=== PATIENT | male | born 1955 | race Caucasian/White ===

== ENCOUNTER 2019-08-29 08:49 | Inpatient (IN) | payer OTHER ==
[~2019-08-29] VITALS: Ht 180.3 cm; Wt 100.6 kg
[2019-08-29] MEDS ORDERED: VANCOMYCIN 1GM+NS 250ML 250 ML IV ONE (09:19)
[2019-08-29] MEDS ORDERED: ONDANSETRON HCL 4 MG/2 ML VIAL ONE (09:36)
[2019-08-29] MEDS ORDERED: MORPHINE SULFATE 4 MG/1ML SYG ONE ×2 (09:36→18:34)
[2019-08-29] MEDS ORDERED: SODIUM BICARB 8.4% 50ML SYRINGE IVP ONE (09:46)
[2019-08-29 10:07] LABS: BASOPHILS % (AUTO) 0.6 % (0.0-5.0); EOSINOPHILS % (AUTO) 2.5 % (0.0-8.0); HEMATOCRIT 30.9 % (42-54); LYMPHOCYTES % (AUTO) 10.5 % (21.0-51.0); MEAN CORPUSCULAR HEMOGLOBIN 30.1 pg (27.0-33.0); MEAN CORPUSCULAR HGB CONC 33.5 g/dL (32.0-36.0); MEAN CORPUSCULAR VOLUME 89.8 fL (79-99); MONOCYTES % (AUTO) 6.9 % (3.0-13.0); NEUTROPHILS % (AUTO) 79.5 % (40.0-77.0); PLATELET COUNT (AUTO) 359 K/uL (130-400); RED BLOOD CELL COUNT(AUTO) 3.44 MIL/uL (4.50-6.20); RED CELL DISTRIBUTION WIDTH 14.2 % (11.0-15.5); WHITE BLOOD COUNT (AUTO) 11.1 K/uL (4.8-10.8)
[2019-08-29 10:19] LABS: CARBON DIOXIDE 23 mmol/L (21-32); CHLORIDE 102 mmol/L (101-111); CREATININE 1.2 mg/dL (0.5-1.5); GLOMERULAR FILTR. RATE CALC 65 mL/min (>60); GLUCOSE,RANDOM 143 mg/dL (70-105); POTASSIUM 4.4 mmol/L (3.5-5.1); SODIUM SERUM 138 mmol/L (136-145); UREA NITROGEN, BLOOD 29 mg/dL (7-18)
[2019-08-29 10:25] LABS: INR 1.01 (0.85-1.15); PARTIAL THROMBOPLASTIN TIME 26.4 SEC (26.3-35.5); PROTHROMBIN TIME 10.4 SEC (9.6-11.6)
[2019-08-29 10:30] LABS: ALANINE AMINOTRANSFERASE 57 U/L (12-78); ALBUMIN 3.2 g/dL (3.5-5.0); ASPARTATE AMINOTRANSFERASE 26 U/L (10-37); BILIRUBIN,TOTAL 0.4 mg/dL (0.2-1.0); CREATINE KINASE, TOTAL 68 U/L (21-232); MYOGLOBIN 55 ng/mL (10-92); TOTAL PROTEIN, SERUM 8.2 g/dL (6.0-8.3); TROPONIN I < 0.04 ng/mL (0.00-0.06)
[2019-08-29] MEDS ORDERED: IOHEXOL 350 MG/ML 100ML INFUS..BTL IV ONE (10:56)
[2019-08-29] MEDS ORDERED: IOHEXOL-350 50ML VIAL IV ONE (10:56)
[2019-08-29] MEDS ORDERED: ZOSYN 3.375GM+NS 50ML 50 ML IV ONE (11:51)
[2019-08-29 12:13] LABS: APPEARANCE,URINE Cloudy (CLEAR); BILIRUBIN,URINE Negative (NEGATIVE); COLOR,URINE Yellow (YELLOW); GLUCOSE, URINE (UA) Negative (NEGATIVE); KETONES,URINE Negative (NEGATIVE); LEUKOCYTE ESTERASE ,URINE Moderate (NEGATIVE); NITRATE,URINE Positive (NEGATIVE); OCCULT BLOOD,URINE Negative (NEGATIVE); PH,URINE 5.5 (5.0-8.0); PROTEIN,URINE Negative (NEGATIVE)
[2019-08-29 12:24] LABS: BACTERIA,URINE Moderate /HPF (None Seen); RBC,URINE 0-1 /HPF (0-1); WBC,URINE 51-100 /HPF (0-1)
[2019-08-29 12:25] LABS: MUCUS,URINE Rare LPF (None Seen); SQUAMOUS EPITHELIAL CELL,UR Rare /HPF (0-2)
[2019-08-29] MEDS ORDERED: VANCOMYCIN PROTOCOL PER PHARMACY IV SCH (15:45)
[2019-08-29] MEDS ORDERED: LACTULOSE 20 GM/30 ML UDCUP PO PRN (16:00)
[2019-08-29] MEDS ORDERED: ACETAMINOPHEN-CODEINE 300/30MG TAB ONE (16:11)
[2019-08-29] MEDS ORDERED: VANCOMYCIN 1.5 GM in SODIUM CHLORIDE 0.9% 250 ML IV SCH (16:15)
[2019-08-29] MEDS ORDERED: COMPOUND IV REFRIGERATED 1 EACH IVSOLN MISC PRN (16:15)
[2019-08-29] MEDS ORDERED: LOSA100T58 PO (19:52)
[2019-08-29] MEDS ORDERED: BUSP15TA3 PO (19:52)
[2019-08-29] MEDS ORDERED: ASPI-1026 PO (19:52)
[2019-08-29] MEDS ORDERED: PANT40TA25 PO (19:52)
[2019-08-29] MEDS ORDERED: AMLO10TA7 PO (19:52)
[2019-08-29] MEDS ORDERED: TERA2CAP4 PO (19:52)
[2019-08-29 20:05] VITALS: BP 141/90
[2019-08-29] MEDS: SODIUM CHLORIDE 0.9% 1000ML 1,000 ML IV SCH (20:22)
[2019-08-29] MEDS: MORPHINE SULFATE 4 MG/1ML SYG IV PRN (20:22)
[2019-08-29] MEDS: FAMOTIDINE 20MG TAB 20 MG TAB PO SCH (20:23)
[2019-08-29] MEDS: ZOSYN 3.375GM+NS 50ML 50 ML IV SCH (20:23)
[2019-08-29] MEDS: ONDANSETRON HCL 4 MG/2 ML VIAL IV PRN (20:23)
[2019-08-29] MEDS: ACETAMINOPHEN-CODEINE 300/30MG TAB PO PRN (22:21)
[2019-08-29 23:25] VITALS: BP_DIAS 107
[2019-08-30 03:25] VITALS: BP 111/75
[2019-08-30 03:54] LABS: BASOPHILS % (AUTO) 0.7 % (0.0-5.0); EOSINOPHILS % (AUTO) 2.8 % (0.0-8.0); HEMATOCRIT 29.8 % (42-54); LYMPHOCYTES % (AUTO) 9.6 % (21.0-51.0); MEAN CORPUSCULAR HEMOGLOBIN 30.5 pg (27.0-33.0); MEAN CORPUSCULAR HGB CONC 33.6 g/dL (32.0-36.0); MEAN CORPUSCULAR VOLUME 90.8 fL (79-99); MONOCYTES % (AUTO) 7.3 % (3.0-13.0); NEUTROPHILS % (AUTO) 79.6 % (40.0-77.0); PLATELET COUNT (AUTO) 338 K/uL (130-400); RED BLOOD CELL COUNT(AUTO) 3.29 MIL/uL (4.50-6.20); RED CELL DISTRIBUTION WIDTH 14.3 % (11.0-15.5); WHITE BLOOD COUNT (AUTO) 11.5 K/uL (4.8-10.8)
[2019-08-30 04:18] LABS: ALBUMIN 2.9 g/dL (3.5-5.0); BILIRUBIN,TOTAL 0.8 mg/dL (0.2-1.0); CREATININE 1.2 mg/dL (0.5-1.5); POTASSIUM 4.2 mmol/L (3.5-5.1); TOTAL PROTEIN, SERUM 7.4 g/dL (6.0-8.3)
[2019-08-30] MEDS: ZOSYN 3.375GM+NS 50ML 50 ML IV SCH ×3 (04:25→22:19)
[2019-08-30] MEDS: MORPHINE SULFATE 4 MG/1ML SYG IV PRN ×7 (04:26→23:33)
[2019-08-30] MEDS: SODIUM CHLORIDE 0.9% 1000ML 1,000 ML IV SCH ×3 (04:45→15:33)
[2019-08-30] MEDS: VANCOMYCIN 1GM+NS 250ML 250 ML IV SCH ×2 (06:43→20:17)
[2019-08-30] MEDS: ACETAMINOPHEN-CODEINE 300/30MG TAB PO PRN ×2 (06:51→17:13)
[2019-08-30 07:46] VITALS: BP 124/80
[2019-08-30] MEDS: FAMOTIDINE 20MG TAB 20 MG TAB PO SCH ×2 (08:10→20:17)
[2019-08-30] MEDS ORDERED: ENOXAPARIN SODIUM 30 MG/0.3 ML SQ SCH (09:00)
--- NOTE | 2019-08-30 10:30 | NUR ---
DR. TADEO IS MAKING HIS ROUNDS. AWAITING BLOOD CULTURES. CONTINUE ANTIBIOTICS. NO PLANS FOR SURGERY AT THIS TIME.
[2019-08-30 11:33] VITALS: BP 139/84
--- NOTE | 2019-08-30 12:27 | NUR ---
DR. MCKENNA IS IN TO SEE PATIENT. WILL CONTINUE WITH CURRENT ANTIBIOTICS.
[2019-08-30 16:28] VITALS: BP 146/57
--- NOTE | 2019-08-30 16:43 | NUR ---
DC PLAN PER PATIENT, IS SEMI-INDEPENDENT, LIVES ALONE, NO PROVIDER, NO EQUIPMENT, AND FEELS SAFE TO RETURN HOME ONLY IF DOCTOR RECOMMENDS. OPEN TO SNF, HOME HEALTH, OR INPATIENT REHAB IF DOCTOR RECOMMENDS. WILL POSSIBLY NEED, IV ANTIBIOTICS, WOUND CARE AND PHYSICAL THERAPY IF SURGERY IS PLANNED. MD TO DISCUSS POSSIBLE SURGERY WITH PATIENT. Addendum: 08/30/19 at 1646 by HIEN LARA RN CM Amended: Links added.
[2019-08-30] MEDS: RIFAMPIN 300 MG CAPSULE PO SCH (20:17)
[2019-08-30 20:31] VITALS: BP 107/68
[2019-08-31] VITALS (26 sets, daily range): BP systolic 97–184; BP diastolic 49–114
[2019-08-31] MEDS ORDERED: KETOROLAC TROMETHAMINE 15MG/ML ONE (00:08)
[2019-08-31] MEDS ORDERED: KETOROLAC TROMETHAMINE 15MG/ML IM SCH (00:15)
[2019-08-31 00:17] LABS: HEMATOCRIT 30.3 % (42-54)
[2019-08-31 02:02] LABS: APPEARANCE,URINE Clear (CLEAR); BILIRUBIN,URINE Negative (NEGATIVE); COLOR,URINE Dark Yellow (YELLOW); GLUCOSE, URINE (UA) Negative (NEGATIVE); KETONES,URINE Negative (NEGATIVE); LEUKOCYTE ESTERASE ,URINE Moderate (NEGATIVE); NITRATE,URINE Negative (NEGATIVE); OCCULT BLOOD,URINE Trace (NEGATIVE); PROTEIN,URINE Negative (NEGATIVE)
[2019-08-31 02:18] LABS: BACTERIA,URINE Few /HPF (None Seen); SQUAMOUS EPITHELIAL CELL,UR 0-2 /HPF (0-2)
[2019-08-31 03:01] LABS: ALBUMIN 2.6 g/dL (3.5-5.0); BILIRUBIN,TOTAL 1.2 mg/dL (0.2-1.0); CREATININE 1.3 mg/dL (0.5-1.5); POTASSIUM 3.8 mmol/L (3.5-5.1); TOTAL PROTEIN, SERUM 6.8 g/dL (6.0-8.3)
--- NOTE | 2019-08-31 03:02 | NUR ---
LEFT GROIN PRESSURE DRESSING PER CHRISTINE HORN A FEM STOP TO LT GROIN, RUG INSPECTOR HELPER DEREK UNABLE TO GET A FEM STOP, SURGIFOAM APPLIED TO LT GROIN TO STOP BLEEDING. PATIENTS VS STABLE, MINIMAL PAIN, WILL CONTINUE TO MONITOR PATIENT
[2019-08-31 03:20] LABS: BASOPHILS % (AUTO) 0.6 % (0.0-5.0); EOSINOPHILS % (AUTO) 2.1 % (0.0-8.0); HEMATOCRIT 26.9 % (42-54); LYMPHOCYTES % (AUTO) 8.5 % (21.0-51.0); MEAN CORPUSCULAR HEMOGLOBIN 29.2 pg (27.0-33.0); MEAN CORPUSCULAR HGB CONC 32.3 g/dL (32.0-36.0); MEAN CORPUSCULAR VOLUME 90.3 fL (79-99); MONOCYTES % (AUTO) 6.6 % (3.0-13.0); NEUTROPHILS % (AUTO) 82.2 % (40.0-77.0); PLATELET COUNT (AUTO) 348 K/uL (130-400); RED BLOOD CELL COUNT(AUTO) 2.98 MIL/uL (4.50-6.20); RED CELL DISTRIBUTION WIDTH 14.2 % (11.0-15.5); WHITE BLOOD COUNT (AUTO) 12.8 K/uL (4.8-10.8)
[2019-08-31] MEDS: SODIUM CHLORIDE 0.9% 1000ML 1,000 ML IV SCH ×3 (03:33→20:59)
[2019-08-31] MEDS: ZOSYN 3.375GM+NS 50ML 50 ML IV SCH ×3 (04:00→20:55)
[2019-08-31 04:30] LABS: HEMATOCRIT 26.4 % (42-54)
[2019-08-31] MEDS: MORPHINE SULFATE 4 MG/1ML SYG IV PRN ×4 (05:12→20:22)
--- NOTE | 2019-08-31 05:30 | NUR ---
UPDATE ON CALLS DR TADEO AND DR GHOTRA CALLED FOR PATIENT REPEAT BLEEDING TO LT GROIN, SHWETHA STATED TO TAKE TO OR FOR EMERGENCY SURGERY,CHARGE NURSE APPLYING PRESSURE TO LT GROIN TO CONTROL BLEEDING ALONG WITH NURSE WILFRID. VITALS SIGNS STABLE. CESAR NEWSPAPER CARRIER AT BEDSIDE AT 0645TO GIVE ANALGESICS AND ASSESSED PATIENT. ORDERED 2UNITS PRBCS, STARTED BLOOD 0637. PATIENT TAKEN TO OR, DR TADEO AWARE OF SITUATION, ALL QUESTIONS ANSWERED, STATED NO CONSENT NEEDED FOR EMERGENCY SURGERY. CURRENTLY WAITING ON OR CREW TO ARRIVE TO TAKE PATIENT. PATIENT TAKEN DOWN TO SURGERY AT 0750.
[2019-08-31 06:03] LABS: HEMATOCRIT 25.6 % (42-54)
[2019-08-31 06:09] LABS: INR 1.1 (0.85-1.15); PARTIAL THROMBOPLASTIN TIME 29.7 SEC (26.3-35.5); PROTHROMBIN TIME 11.5 SEC (9.6-11.6)
[2019-08-31] MEDS ORDERED: SODIUM CHLORIDE 0.9% 250 ML IV ONE (06:33)
[2019-08-31] MEDS ORDERED: MIDAZOLAM HCL 1 MG/ML 2ML VIAL ONE (07:27)
[2019-08-31] MEDS ORDERED: FENTANYL CITRATE PF 50 MCG/1 ML 2ML VIAL ONE (07:28)
[2019-08-31] MEDS ORDERED: SUCCINYLCHOLINE 200MG/10ML SYR ONE (07:46)
[2019-08-31] MEDS ORDERED: PROPOFOL 10 MG/ML 20ML VIAL IV ONE (07:46)
[2019-08-31] MEDS ORDERED: LIDOCAINE HCL-MPF 1% 5ML AMP IJ ONE (07:46)
[2019-08-31] MEDS ORDERED: ETOMIDATE 2 MG/ML 10 ML VIAL ONE (07:48)
[2019-08-31] MEDS ORDERED: ROCURONIUM 10MG/1ML SYR 10 MG/ML ML ONE ×3 (07:53→10:54)
--- NOTE | 2019-08-31 08:09 | NUR ---
BLEEDING LT GROIN NUPUR MCCABE ASSESSED PATIENT AT BEDSIDE,HOUSE SUPERVIOR ASSESSED PATIENT WELL, H&H WAS BEING MONITORED, US OF LT GROIN ORDERED STAT, PRESSURE TO RT GROIN WITH DESTAT WITH PRESSURE DRESSING WAS APPLIED, BLEEDING STOPPED. WILL CONTINUE TO MONITOR PATIENT
[2019-08-31 08:18] LABS: ABG BASE EXCESS -15.8 mmol/L (-2.0-3.0); ABG HCO3 14.7 mmol/L (21.0-28.0); ABG OXYGEN SATURATION 81.5 % (95.0-99.0); ABG PCO2 58 mmHg (35-48)
[2019-08-31] MEDS ORDERED: SODIUM BICARB 8.4% 50ML SYRINGE ONE (08:19)
[2019-08-31] MEDS: FAMOTIDINE 20MG TAB 20 MG TAB PO SCH ×2 (09:00→20:55)
[2019-08-31] MEDS: RIFAMPIN 300 MG CAPSULE PO SCH ×2 (09:00→20:56)
[2019-08-31 09:04] LABS: ABG BASE EXCESS 10.5 mmol/L (-2.0-3.0); ABG OXYGEN SATURATION 98.2 % (95.0-99.0); ABG PCO2 41 mmHg (35-48)
[2019-08-31] MEDS ORDERED: BACITRACIN 50,000 UNIT VIAL ONE ×2 (09:05→10:13)
[2019-08-31 09:37] LABS: ABG BASE EXCESS 0.4 mmol/L (-2.0-3.0); ABG OXYGEN SATURATION 98.3 % (95.0-99.0); ABG PCO2 40 mmHg (35-48)
[2019-08-31 09:41] LABS: HEMATOCRIT 27.6 % (42-54); LYMPHOCYTES % (AUTO) 3.8 % (21.0-51.0); MEAN CORPUSCULAR HEMOGLOBIN 31.2 pg (27.0-33.0); MEAN CORPUSCULAR HGB CONC 34.3 g/dL (32.0-36.0); MEAN CORPUSCULAR VOLUME 91.1 fL (79-99); MONOCYTES % (AUTO) 3.6 % (3.0-13.0); NEUTROPHILS % (AUTO) 89.6 % (40.0-77.0); PLATELET COUNT (AUTO) 206 K/uL (130-400); RED BLOOD CELL COUNT(AUTO) 3.03 MIL/uL (4.50-6.20); RED CELL DISTRIBUTION WIDTH 13.8 % (11.0-15.5); WHITE BLOOD COUNT (AUTO) 15.4 K/uL (4.8-10.8)
[2019-08-31 09:49] LABS: ALBUMIN 1.9 g/dL (3.5-5.0); BILIRUBIN,TOTAL 1.1 mg/dL (0.2-1.0); CREATININE 1.3 mg/dL (0.5-1.5); INR 1.25 (0.85-1.15); PARTIAL THROMBOPLASTIN TIME 25.9 SEC (26.3-35.5); POTASSIUM 4.1 mmol/L (3.5-5.1); TOTAL PROTEIN, SERUM 4.5 g/dL (6.0-8.3)
[2019-08-31] MEDS ORDERED: HEPARIN SODIUM 1000UNIT/ML 10ML VIAL ONE (09:56)
[2019-08-31] MEDS ORDERED: FENTANYL CITRATE PF 50 MCG/1 ML 5ML AMP IV ONE (10:33)
[2019-08-31] MEDS ORDERED: MIDAZOLAM HCL 1 MG/ML 5ML VIAL ONE (10:33)
[2019-08-31 10:35] LABS: ABG BASE EXCESS 6.3 mmol/L (-2.0-3.0); ABG OXYGEN SATURATION 98.7 % (95.0-99.0); ABG PCO2 40 mmHg (35-48)
[2019-08-31 10:36] LABS: BASOPHILS % (AUTO) 0.3 % (0.0-5.0); EOSINOPHILS % (AUTO) 0.3 % (0.0-8.0); HEMATOCRIT 23.9 % (42-54); LYMPHOCYTES % (AUTO) 4.3 % (21.0-51.0); MEAN CORPUSCULAR HEMOGLOBIN 30.6 pg (27.0-33.0); MEAN CORPUSCULAR HGB CONC 34.3 g/dL (32.0-36.0); MEAN CORPUSCULAR VOLUME 89.3 fL (79-99); MONOCYTES % (AUTO) 3.2 % (3.0-13.0); NEUTROPHILS % (AUTO) 91.9 % (40.0-77.0); PLATELET COUNT (AUTO) 203 K/uL (130-400); RED BLOOD CELL COUNT(AUTO) 2.68 MIL/uL (4.50-6.20); RED CELL DISTRIBUTION WIDTH 13.8 % (11.0-15.5); WHITE BLOOD COUNT (AUTO) 13.7 K/uL (4.8-10.8)
[2019-08-31] MEDS ORDERED: PROPOFOL 1000 MG/100 ML 100 ML IV ONE (11:01)
[2019-08-31 11:08] LABS: INR 1.09 (0.85-1.15); PARTIAL THROMBOPLASTIN TIME 24.3 SEC (26.3-35.5); PROTHROMBIN TIME 11.4 SEC (9.6-11.6)
[2019-08-31] MEDS ORDERED: NITROGLYCERIN 50 MG/D5% WATER 1 BOT ONE ×2 (11:13→11:37)
--- NOTE | 2019-08-31 11:17 | NUR ---
PT WAS ADMITTED TO ROOM 218 AFTER LEFT FEMORAL EXPLORATION AND REPAIR. PT WAS CONNECTED TO ARMATURE REPAIRER AND VENTILATOR PRESCRIBED. SEE PHYSICAL ASSESSMENT FOR DOCUMENTATION. PT HAS IRRIGATION TO RIGHT GROIN TO IRRIGATE LEFT GROIN SITE, SANGUINE DRAINAGE NOTED. IRRIGATION PRESCRIBED.
[2019-08-31 12:43] LABS: ABG BASE EXCESS 3.2 mmol/L (-2.0-3.0); ABG OXYGEN SATURATION 98.5 % (95.0-99.0); ABG PCO2 38 mmHg (35-48)
--- NOTE | 2019-08-31 12:45 | NUR ---
DR. FERNANDEZ HERE TO ASSESSED PT AND ORDERS NOTED. PT WILL BE LEFT INTUBATED UNTIL AM. TO REMAIN SEDATED WITH PROPOFOL.
--- NOTE | 2019-08-31 13:10 | NUR ---
SISTER JUAN HERE TO VISIT WITH PATIENT AND ADVISED NURSE THAT THE PATIENT HAS NIGHTMARES ON DIPRIVAN ALONE, THAT HE HAS BEEN ON DIPRIVAN AND VERSED FOR SEDATION ON PREVIOUS ADMISSIONS. Addendum: 08/31/19 at 1329 by VERA ALVAREZ RN RN DR. FERNANDEZ WAS ADVISED OF SISTER'S CONCERN.
[2019-08-31] MEDS ORDERED: CALCIUM GLUCONATE 1 GM/10 ML VIAL IV SCH (14:15)
[2019-08-31] MEDS: ARTIFICAL TEARS SOL 15 ML OU SCH ×2 (14:15→20:55)
[2019-08-31] MEDS ORDERED: LIDOCAINE HCL-MPF 1% 2ML VIAL IV PRN (14:30)
[2019-08-31 15:06] LABS: HEMATOCRIT 23.7 % (42-54); MEAN CORPUSCULAR HEMOGLOBIN 30.8 pg (27.0-33.0); MEAN CORPUSCULAR HGB CONC 35.3 g/dL (32.0-36.0); MEAN CORPUSCULAR VOLUME 87.3 fL (79-99); PLATELET COUNT (AUTO) 182 K/uL (130-400); RED BLOOD CELL COUNT(AUTO) 2.71 MIL/uL (4.50-6.20); RED CELL DISTRIBUTION WIDTH 14.4 % (11.0-15.5); WHITE BLOOD COUNT (AUTO) 8.7 K/uL (4.8-10.8)
[2019-08-31 15:20] LABS: INR 1.13 (0.85-1.15); PROTHROMBIN TIME 11.8 SEC (9.6-11.6)
[2019-08-31] MEDS ORDERED: CALCIUM GLUCONATE 1 GM in DEXTROSE 5%-WATER 50 ML IV SCH (15:45)
[2019-08-31 16:00] LABS: BAND NEUTROPHILS % (MANUAL) 10 % (0-2); EOSINOPHILS % (MANUAL) 1 % (1-6); LYMPHOCYTES % (MANUAL) 14 % (22-44); MAN.DIFF COMMENT-IMPRESSION MANUAL DIFFERENTIAL; MONOCYTES % (MANUAL) 5 % (2-9); REACTIVE LYMPHOCYTES 1 % (0-0); SEGMENTED NEUTROPHILS % 69 % (40-70)
[2019-08-31] MEDS ORDERED: INSULIN HUMULIN R 100 UNIT/ML 3ML SQ SCH (16:30)
[2019-08-31] MEDS: VANCOMYCIN 1GM+NS 250ML 250 ML IV SCH ×2 (17:14→18:00)
--- NOTE | 2019-08-31 18:00 | NUR ---
ORDER FOR WISAM DYSON SISTER- STATED SHE WAS AT [facility]- SPOKE TO HER- PT INTUBATED, SEDATED, Mike MORTENSEN FOR WISAM, SISTER STATES MUCH TOO EARLY TO CONSIDE, ALL HER FRIENDS AND FAMILY GO TO REHAB, WHY CANT HE GO THERE? CM PROIVED EMPOTIONAL SUPPORT- SISTER STATED BIG SHOCK TODAY- CM TO FOLLOW UP Addendum: 08/31/19 at 1924 by MARIANNE LUDWIG RN CM Amended: Links added.
[2019-08-31] MEDS: ACETAMINOPHEN-CODEINE 300/30MG TAB PO PRN ×3 (18:17→20:24)
[2019-08-31 19:26] LABS: HEMATOCRIT 24.1 % (42-54); MEAN CORPUSCULAR HEMOGLOBIN 30.2 pg (27.0-33.0); MEAN CORPUSCULAR VOLUME 86.3 fL (79-99); PLATELET COUNT (AUTO) 188 K/uL (130-400); RED BLOOD CELL COUNT(AUTO) 2.79 MIL/uL (4.50-6.20); RED CELL DISTRIBUTION WIDTH 14.3 % (11.0-15.5); WHITE BLOOD COUNT (AUTO) 8.2 K/uL (4.8-10.8)
[2019-08-31 19:36] LABS: INR 1.13 (0.85-1.15); PROTHROMBIN TIME 11.8 SEC (9.6-11.6)
[2019-08-31 20:14] LABS: BAND NEUTROPHILS % (MANUAL) 6 % (0-2); EOSINOPHILS % (MANUAL) 1 % (1-6); LYMPHOCYTES % (MANUAL) 11 % (22-44); MONOCYTES % (MANUAL) 6 % (2-9); SEGMENTED NEUTROPHILS % 76 % (40-70)
[2019-08-31 20:15] LABS: MAN.DIFF COMMENT-IMPRESSION MANUAL DIFFERENTIAL
[2019-08-31] MEDS: PROPOFOL 1000 MG/100 ML IV PRN (20:54)
--- NOTE | 2019-08-31 23:25 | NUR ---
STATUS [address] TADEO. CALL AGAIN TO NOTIFY OF DISCOLORATION OF LEFT GREAT TOE AND ABSENT PULSE TO FOOT. NO ANSWER. LEFT MESSAGE FOR RETURN CALL
[2019-09-01] VITALS (32 sets, daily range): BP systolic 105–197; BP diastolic 53–102
[2019-09-01] MEDS: PROPOFOL 1000 MG/100 ML IV PRN ×3 (01:56→05:49)
[2019-09-01] MEDS: ARTIFICAL TEARS SOL 15 ML OU SCH ×3 (03:06→14:15)
[2019-09-01 03:57] LABS: HEMATOCRIT 22.3 % (42-54); MEAN CORPUSCULAR HEMOGLOBIN 31.8 pg (27.0-33.0); MEAN CORPUSCULAR HGB CONC 36.1 g/dL (32.0-36.0); MEAN CORPUSCULAR VOLUME 88.1 fL (79-99); PLATELET COUNT (AUTO) 170 K/uL (130-400); RED BLOOD CELL COUNT(AUTO) 2.53 MIL/uL (4.50-6.20); RED CELL DISTRIBUTION WIDTH 14.6 % (11.0-15.5); WHITE BLOOD COUNT (AUTO) 8.9 K/uL (4.8-10.8)
[2019-09-01 03:59] LABS: ABG BASE EXCESS 1.9 mmol/L (-2.0-3.0); ABG HCO3 23.4 mmol/L (21.0-28.0); ABG OXYGEN SATURATION 98.2 % (95.0-99.0); ABG PCO2 29 mmHg (35-48)
[2019-09-01] MEDS: ZOSYN 3.375GM+NS 50ML 50 ML IV SCH ×3 (04:02→20:16)
[2019-09-01 04:12] LABS: EOSINOPHILS % (MANUAL) 1 % (1-6); LYMPHOCYTES % (MANUAL) 9 % (22-44); MAN.DIFF COMMENT-IMPRESSION MANUAL DIFFERENTIAL; MONOCYTES % (MANUAL) 4 % (2-9); SEGMENTED NEUTROPHILS % 86 % (40-70)
[2019-09-01 04:26] LABS: ALBUMIN 2.5 g/dL (3.5-5.0); BILIRUBIN,TOTAL 2.9 mg/dL (0.2-1.0); CREATININE 1.3 mg/dL (0.5-1.5); MAGNESIUM 1.4 mg/dL (1.80-2.40); PHOSPHORUS 4.8 mg/dL (2.5-4.9); POTASSIUM 3.6 mmol/L (3.5-5.1); TOTAL PROTEIN, SERUM 5.8 g/dL (6.0-8.3)
[2019-09-01 04:29] LABS: INR 1.14 (0.85-1.15); PROTHROMBIN TIME 11.9 SEC (9.6-11.6)
--- NOTE | 2019-09-01 05:02 | NUR ---
STATUS DR TADEO CALLED TO NOTIFY REGARDING ARTERIAL US. INCIDENTAL FINDING OF R POPLITEAL DVT AND NO FLOW OF THE LEFT SUPERFICIAL FEMORAL ARTERY FROM THE POPLITEAL DOWN. HALLUX MOTTLED. NO ANSWER. MESSAGE LEFT TO RETURN CALL
[2019-09-01] MEDS: VANCOMYCIN 1GM+NS 250ML 250 ML IV SCH ×2 (05:08→18:23)
[2019-09-01] MEDS: SODIUM CHLORIDE 0.9% 1000ML 1,000 ML IV SCH ×2 (05:11→16:45)
--- NOTE | 2019-09-01 05:26 | NUR ---
BENCHMARK BENCHMARK FURNACE COMBUSTION ANALYST NOTIFIED OF PATIENT CONDITION AND CHANGES WITH LEFT FOOT.ORDERS RECEIVED AND ENTERED INTO SYSTEM. Addendum: 09/01/19 at 0531 by ASHLI CRISTOBAL RN RN BENCHMARK 0130 PAGED BENCHMARK. PAGED AT 0150. AT 0233 CONNECTED WITH KEELY JACKSON NP.
[2019-09-01] MEDS: INSULIN HUMULIN R 100 UNIT/ML 3ML SQ SCH ×4 (06:00→18:00)
--- NOTE | 2019-09-01 06:35 | NUR ---
STATUS CALL BACK FROM DR TADEO. UPDATED ON PATIENT CONDITION. DISCOLORATION OF FOOT, PULSELESSNESS, AND RESULTS OF ARTERIAL US. INFORMED THAT PATIENT MOVES ALL [address] TADEO ORDERS TO EXTUBATE PATIENT TO DETERMINE WEATHER HAS SENSATION IN LOWER LEFT EXTREMITY.
--- NOTE | 2019-09-01 07:20 | NUR ---
REPORT REPORT GIVEN TO VERA OTERO. UPDATED ON PATIENT CONDITION. LEFT LOWER EXTREMITY AND IRRIGATION SITE ASSESSED AT THE BEDSIDE. UPDATED ON MOST RECENT ORDERS
[2019-09-01 08:25] LABS: MEAN CORPUSCULAR HEMOGLOBIN 31.1 pg (27.0-33.0); MEAN CORPUSCULAR HGB CONC 35.3 g/dL (32.0-36.0); MEAN CORPUSCULAR VOLUME 88.2 fL (79-99); PLATELET COUNT (AUTO) 175 K/uL (130-400); RED CELL DISTRIBUTION WIDTH 14.6 % (11.0-15.5); WHITE BLOOD COUNT (AUTO) 9.6 K/uL (4.8-10.8)
--- NOTE | 2019-09-01 08:30 | NUR ---
DR. FERNANDEZ WAS ADVISED OF DR. ROJAS WANTING FOR PATIENT TO BE EXTUBATED AND ASKED IF HE COULD FEEL ANY PAIN OR SENSATION TO HIS LEFT LEG. DR. FERNANDEZ ORDERED CPAP 5 WITH PS OF 5.
[2019-09-01 08:43] LABS: INR 1.13 (0.85-1.15); PROTHROMBIN TIME 11.8 SEC (9.6-11.6)
--- NOTE | 2019-09-01 09:00 | NUR ---
DR. FERNANDEZ HERE AND PT WAS PLACED ON CPAP ORDERED AND WILL OBTAIN ABG'S. PT IS BEING COMFORTED BY SISTER JUAN AND ABLE TO CONTROLLED HIS AGITATION. RESP THERAPIST BALJEET HERE AND EXPLAINING EXTUBATION TO PATIENT AND SISTER.
[2019-09-01] MEDS: MORPHINE SULFATE 4 MG/1ML SYG IV PRN ×5 (09:15→22:36)
[2019-09-01 09:22] LABS: ABG BASE EXCESS 3.8 mmol/L (-2.0-3.0); ABG OXYGEN SATURATION 98.8 % (95.0-99.0); ABG PCO2 36 mmHg (35-48)
--- NOTE | 2019-09-01 09:25 | NUR ---
PT WAS EXTUBATED AND PLACED ON AEROSOL MASK AT 40% ORDERED BY DR. FERNANDEZ AFTER ABG'S REPORTED TO DR. TAN.
[2019-09-01 10:02] LABS: EOSINOPHILS % (MANUAL) 3 % (1-6); LYMPHOCYTES % (MANUAL) 11 % (22-44); MAN.DIFF COMMENT-IMPRESSION MANUAL DIFFERENTIAL; MONOCYTES % (MANUAL) 2 % (2-9); SEGMENTED NEUTROPHILS % 84 % (40-70)
[2019-09-01 10:03] LABS: PLATELET MORPHOLOGY COMMENT ADEQUATE
[2019-09-01] MEDS: ONDANSETRON HCL 4 MG/2 ML VIAL IV PRN ×2 (10:40→20:21)
[2019-09-01] MEDS: RIFAMPIN 300 MG CAPSULE PO SCH ×2 (10:40→20:16)
[2019-09-01] MEDS: FAMOTIDINE 20MG TAB 20 MG TAB PO SCH ×2 (10:40→20:16)
[2019-09-01] MEDS: ACETAMINOPHEN-CODEINE 300/30MG TAB PO PRN ×2 (10:41→15:29)
[2019-09-01] MEDS: HEPARIN 25000 UNITS/250 ML D5W 250 ML IV PRN ×2 (12:42→22:37)
[2019-09-01] MEDS ORDERED: BACITRACIN IRRIG SCH (14:30)
[2019-09-01] MEDS ORDERED: CLOPIDOGREL BISULFATE 75 MG TAB PO SCH (14:30)
[2019-09-01] MEDS ORDERED: PHARMACY COMMUNICATION MISC SCH (14:30)
[2019-09-01] MEDS ORDERED: SODIUM CHLORIDE IRRIG IRRIG SCH (14:30)
--- NOTE | 2019-09-01 14:40 | NUR ---
PT WAS PLACED ON N/C AT 4 LITERS AND HAS BEEN OXYGENATED IN THE 97%.
--- NOTE | 2019-09-01 17:00 | NUR ---
DR. FERNANDEZ WAS CALLED AND ORDER TO CHANGE MORPHINE DOSE TO 4MG AND DC THE 2MG. PT HAD BEEN ADVISED OF MORPHINE DOSE WAS CHANGED TO ONLY 2 MG.
[2019-09-01] MEDS: BACITRACIN IRRIG SCH (18:06)
[2019-09-01] MEDS: SODIUM CHLORIDE IRRIG IRRIG SCH (18:06)
[2019-09-01 18:14] LABS: MEAN CORPUSCULAR HEMOGLOBIN 31.2 pg (27.0-33.0); MEAN CORPUSCULAR HGB CONC 35.1 g/dL (32.0-36.0); MEAN CORPUSCULAR VOLUME 88.9 fL (79-99); NUCLEATED RED BLOOD CELLS 0.1 % (0.0-0.19); PLATELET COUNT (AUTO) 169 K/uL (130-400); RED BLOOD CELL COUNT(AUTO) 2.34 MIL/uL (4.50-6.20); RED CELL DISTRIBUTION WIDTH 14.8 % (11.0-15.5); WHITE BLOOD COUNT (AUTO) 10.9 K/uL (4.8-10.8)
[2019-09-01 18:47] LABS: INR 1.16 (0.85-1.15); PROTHROMBIN TIME 12.1 SEC (9.6-11.6)
[2019-09-01 19:01] LABS: HEMATOCRIT 20.8 % (42-54)
[2019-09-01 19:58] LABS: BAND NEUTROPHILS % (MANUAL) 3 % (0-2); EOSINOPHILS % (MANUAL) 4 % (1-6); LYMPHOCYTES % (MANUAL) 10 % (22-44); MAN.DIFF COMMENT-IMPRESSION MANUAL DIFFERENTIAL; MONOCYTES % (MANUAL) 4 % (2-9); SEGMENTED NEUTROPHILS % 79 % (40-70)
[2019-09-01] MEDS: BISACODYL 5 MG TABLET.DR PO SCH (20:16)
[2019-09-01] MEDS: DOCUSATE SODIUM 100 MG CAP PO SCH (20:16)
[2019-09-01] MEDS: HYDROCODONE/ACETAMINOPHEN 5/325 MG TAB PO PRN (20:22)
[2019-09-01] MEDS: HYDRALAZINE HCL 20 MG/ML VIAL IV PRN (20:33)
--- NOTE | 2019-09-01 21:40 | NUR ---
BLOOD PRESSURE PATIENT BLOOD PRESSURE SYSTOLIC 180'S. DR TADEO NOTIFIED. NO NEW ORDERS.
[2019-09-02] VITALS (25 sets, daily range): BP systolic 113–194; BP diastolic 30–99
[2019-09-02 00:27] LABS: HEMATOCRIT 21.2 % (42-54); MEAN CORPUSCULAR HEMOGLOBIN 30.1 pg (27.0-33.0); MEAN CORPUSCULAR HGB CONC 33.9 g/dL (32.0-36.0); MEAN CORPUSCULAR VOLUME 88.8 fL (79-99); PLATELET COUNT (AUTO) 178 K/uL (130-400); RED BLOOD CELL COUNT(AUTO) 2.39 MIL/uL (4.50-6.20); RED CELL DISTRIBUTION WIDTH 14.6 % (11.0-15.5); WHITE BLOOD COUNT (AUTO) 11.2 K/uL (4.8-10.8)
[2019-09-02 00:47] LABS: INR 1.1 (0.85-1.15); PARTIAL THROMBOPLASTIN TIME 65.4 SEC (26.3-35.5); PROTHROMBIN TIME 11.5 SEC (9.6-11.6)
[2019-09-02 00:48] LABS: EOSINOPHILS % (MANUAL) 4 % (1-6); LYMPHOCYTES % (MANUAL) 7 % (22-44); MAN.DIFF COMMENT-IMPRESSION MANUAL DIFFERENTIAL; MONOCYTES % (MANUAL) 2 % (2-9); SEGMENTED NEUTROPHILS % 87 % (40-70)
[2019-09-02 00:49] LABS: PLATELET MORPHOLOGY COMMENT ADEQUATE
[2019-09-02] MEDS: MORPHINE SULFATE 4 MG/1ML SYG IV PRN ×5 (02:22→18:30)
[2019-09-02] MEDS: SODIUM CHLORIDE 0.9% 1000ML 1,000 ML IV SCH ×3 (02:28→22:45)
[2019-09-02] MEDS: ZOSYN 3.375GM+NS 50ML 50 ML IV SCH ×3 (03:31→21:11)
[2019-09-02] MEDS: HYDROCODONE/ACETAMINOPHEN 5/325 MG TAB PO PRN ×2 (03:52→07:54)
[2019-09-02] MEDS: INSULIN HUMULIN R 100 UNIT/ML 3ML SQ SCH ×4 (05:53→18:00)
[2019-09-02] MEDS: HYDRALAZINE HCL 20 MG/ML VIAL IV PRN (05:59)
[2019-09-02 06:09] LABS: ALBUMIN 2.4 g/dL (3.5-5.0); BILIRUBIN,TOTAL 1.4 mg/dL (0.2-1.0); MAGNESIUM 2.2 mg/dL (1.80-2.40); PHOSPHORUS 2.3 mg/dL (2.5-4.9); POTASSIUM 3.2 mmol/L (3.5-5.1); TOTAL PROTEIN, SERUM 6.1 g/dL (6.0-8.3)
[2019-09-02] MEDS: VANCOMYCIN 1GM+NS 250ML 250 ML IV SCH ×3 (06:48→21:11)
--- NOTE | 2019-09-02 06:50 | NUR ---
STATUS MD ROUNDS. DR VIVEROS AT THE BEDSIDE. UPDATED ON PATIENT CONDITION. LOWER EXTREMITIES VIEWED. REQUESTED ADDITIONAL PAIN MEDICATION. NO NEW ORDERS RECEIVED. PATIENT QUESTIONS ANSWERED
[2019-09-02] MEDS: BISACODYL 5 MG TABLET.DR PO SCH ×2 (07:54→21:12)
[2019-09-02] MEDS: FAMOTIDINE 20MG TAB 20 MG TAB PO SCH ×2 (07:54→21:12)
[2019-09-02] MEDS: RIFAMPIN 300 MG CAPSULE PO SCH ×2 (07:54→21:11)
[2019-09-02] MEDS: DOCUSATE SODIUM 100 MG CAP PO SCH ×2 (07:54→21:12)
[2019-09-02] MEDS: CLOPIDOGREL BISULFATE 75 MG TAB PO SCH (07:54)
[2019-09-02] MEDS: POTASSIUM CHLORIDE 20MEQ/100ML 100 ML IV PRN ×3 (08:10→18:39)
[2019-09-02] MEDS ORDERED: FENTANYL 50 MCG/HR PATCH TD SCH (10:30)
[2019-09-02] MEDS ORDERED: EPOETIN ALFA 10,000 UNIT/ML VIAL SQ SCH (10:30)
[2019-09-02] MEDS ORDERED: HYDROMORPHONE 1 MG/1 ML AMP IVP SCH (10:30)
[2019-09-02] MEDS: FUROSEMIDE 10 MG/ML 2ML VIAL IV SCH ×2 (10:58→21:11)
[2019-09-02] MEDS: METOPROLOL TARTRATE 25 MG TAB PO SCH ×2 (10:58→21:12)
[2019-09-02] MEDS: TRAMADOL HCL 50 MG TABLET PO SCH ×3 (10:59→21:15)
[2019-09-02] MEDS: HEPARIN 25000 UNITS/250 ML D5W 250 ML IV PRN (11:19)
[2019-09-02] MEDS ORDERED: COMPOUND IV MISC 1 EACH IVSOLN MISC PRN (12:15)
[2019-09-02 12:17] LABS: HEMATOCRIT 23.8 % (42-54); MEAN CORPUSCULAR HEMOGLOBIN 29.7 pg (27.0-33.0); MEAN CORPUSCULAR HGB CONC 33.3 g/dL (32.0-36.0); MEAN CORPUSCULAR VOLUME 89.2 fL (79-99); PLATELET COUNT (AUTO) 225 K/uL (130-400); RED BLOOD CELL COUNT(AUTO) 2.66 MIL/uL (4.50-6.20); RED CELL DISTRIBUTION WIDTH 14.8 % (11.0-15.5); WHITE BLOOD COUNT (AUTO) 12.3 K/uL (4.8-10.8)
[2019-09-02 12:35] LABS: PARTIAL THROMBOPLASTIN TIME 70.2 SEC (26.3-35.5)
[2019-09-02 13:37] LABS: EOSINOPHILS % (MANUAL) 6 % (1-6); LYMPHOCYTES % (MANUAL) 7 % (22-44); MAN.DIFF COMMENT-IMPRESSION MANUAL DIFFERENTIAL; MONOCYTES % (MANUAL) 2 % (2-9); PLATELET MORPHOLOGY COMMENT ADEQUATE; SEGMENTED NEUTROPHILS % 85 % (40-70)
[2019-09-02] MEDS: NEUTRA-PHOS PACKET 1 EACH PO SCH ×3 (13:37→21:12)
[2019-09-02] MEDS: BACITRACIN IRRIG SCH (14:29)
[2019-09-02] MEDS: SODIUM CHLORIDE IRRIG IRRIG SCH (14:29)
[2019-09-02] MEDS ORDERED: PHARMACY COMMUNICATION MISC SCH ×3 (14:30→17:45)
--- NOTE | 2019-09-02 15:50 | NUR ---
[facility] CONSULT NO OPEN WOUNDS OR REDNESS NOTED AT PRESENT TIME, PER FLOOR NURSE ANIKA. Addendum: 09/04/19 at 1329 by MOE AN LVN Amended: Links added.
[2019-09-02 18:16] LABS: HEMATOCRIT 23.6 % (42-54); MEAN CORPUSCULAR HEMOGLOBIN 30.2 pg (27.0-33.0); MEAN CORPUSCULAR HGB CONC 33.5 g/dL (32.0-36.0); MEAN CORPUSCULAR VOLUME 90.1 fL (79-99); NUCLEATED RED BLOOD CELLS 0.1 % (0.0-0.19); PLATELET COUNT (AUTO) 252 K/uL (130-400); RED BLOOD CELL COUNT(AUTO) 2.62 MIL/uL (4.50-6.20); RED CELL DISTRIBUTION WIDTH 14.6 % (11.0-15.5); WHITE BLOOD COUNT (AUTO) 9.3 K/uL (4.8-10.8)
[2019-09-02 18:25] LABS: MAGNESIUM 1.7 mg/dL (1.80-2.40); POTASSIUM 3.6 mmol/L (3.5-5.1)
[2019-09-02] MEDS ORDERED: MAGNESIUM 2GM PREMIX 50ML 50 ML IV PRN (18:45)
[2019-09-02 19:23] LABS: EOSINOPHILS % (MANUAL) 4 % (1-6); LYMPHOCYTES % (MANUAL) 15 % (22-44); MONOCYTES % (MANUAL) 7 % (2-9); SEGMENTED NEUTROPHILS % 74 % (40-70)
[2019-09-02 19:26] LABS: MAN.DIFF COMMENT-IMPRESSION MANUAL DIFFERENTIAL
[2019-09-02 19:27] LABS: PLATELET MORPHOLOGY COMMENT ADEQUATE
[2019-09-02] MEDS: MELATONIN 8 MG PO SCH (21:00)
[2019-09-02] MEDS: TRAZODONE HCL 100 MG TABLET PO SCH (21:15)
[2019-09-03] VITALS (30 sets, daily range): BP systolic 98–174; BP diastolic 48–99
[2019-09-03] MEDS: HEPARIN 25000 UNITS/250 ML D5W 250 ML IV PRN (00:02)
[2019-09-03] MEDS: TRAMADOL HCL 50 MG TABLET PO SCH ×4 (04:39→20:37)
[2019-09-03] MEDS: ZOSYN 3.375GM+NS 50ML 50 ML IV SCH ×3 (04:39→20:38)
[2019-09-03] MEDS: INSULIN HUMULIN R 100 UNIT/ML 3ML SQ SCH ×2 (06:00)
[2019-09-03] MEDS: VANCOMYCIN 1GM+NS 250ML 250 ML IV SCH ×3 (06:10→22:42)
[2019-09-03 06:31] LABS: HEMATOCRIT 21.7 % (42-54); MEAN CORPUSCULAR HEMOGLOBIN 30.9 pg (27.0-33.0); MEAN CORPUSCULAR HGB CONC 34.3 g/dL (32.0-36.0); MEAN CORPUSCULAR VOLUME 90.1 fL (79-99); PLATELET COUNT (AUTO) 228 K/uL (130-400); RED BLOOD CELL COUNT(AUTO) 2.41 MIL/uL (4.50-6.20); RED CELL DISTRIBUTION WIDTH 14.4 % (11.0-15.5); WHITE BLOOD COUNT (AUTO) 11.1 K/uL (4.8-10.8)
[2019-09-03 06:44] LABS: MAGNESIUM 1.7 mg/dL (1.80-2.40); PHOSPHORUS 1.8 mg/dL (2.5-4.9)
[2019-09-03 06:53] LABS: PARTIAL THROMBOPLASTIN TIME 60.1 SEC (26.3-35.5)
[2019-09-03 07:18] LABS: BAND NEUTROPHILS % (MANUAL) 1 % (0-2); BASOPHILS % (MANUAL) 2 % (0-2); EOSINOPHILS % (MANUAL) 4 % (1-6); LYMPHOCYTES % (MANUAL) 4 % (22-44); MONOCYTES % (MANUAL) 2 % (2-9); SEGMENTED NEUTROPHILS % 87 % (40-70)
[2019-09-03 07:19] LABS: MAN.DIFF COMMENT-IMPRESSION MANUAL DIFFERENTIAL; PLATELET MORPHOLOGY COMMENT ADEQUATE
[2019-09-03] MEDS: FAMOTIDINE 20MG TAB 20 MG TAB PO SCH ×2 (07:54→20:37)
[2019-09-03] MEDS: RIFAMPIN 300 MG CAPSULE PO SCH ×2 (07:54→20:37)
[2019-09-03] MEDS: DOXAZOSIN MESYLATE 2 MG TABLET PO SCH (07:55)
[2019-09-03] MEDS: BUPROPION HCL 150 MG TABLET.SA PO SCH (07:55)
[2019-09-03] MEDS: METOPROLOL TARTRATE 25 MG TAB PO SCH ×2 (07:55→20:37)
[2019-09-03] MEDS: ACETAMINOPHEN 325 MG TAB PO PRN (07:55)
[2019-09-03] MEDS: DOCUSATE SODIUM 100 MG CAP PO SCH ×2 (07:56→20:37)
[2019-09-03] MEDS: BISACODYL 5 MG TABLET.DR PO SCH ×2 (07:56→20:37)
[2019-09-03] MEDS: CLOPIDOGREL BISULFATE 75 MG TAB PO SCH (07:56)
[2019-09-03] MEDS: SODIUM CHLORIDE 0.9% 1000ML 1,000 ML IV SCH ×2 (08:09→18:02)
[2019-09-03] MEDS: NEUTRA-PHOS PACKET 1 EACH PO SCH (08:09)
--- NOTE | 2019-09-03 08:30 | NUR ---
MD VISIT Dr. Drew in to see pt, update given. New orders received dn will carry out.
[2019-09-03] MEDS: HYDROCODONE/ACETAMINOPHEN 5/325 MG TAB PO PRN ×2 (08:58→18:02)
[2019-09-03] MEDS ORDERED: WELLBUTRIN 100 MG PO SCH (09:00)
[2019-09-03] MEDS ORDERED: IRON SUCROSE COMPLEX 100 MG in SODIUM CHLORIDE 0.9% 50 ML IV SCH (09:00)
[2019-09-03] MEDS ORDERED: MELATONIN 8 MG PO SCH (09:00)
[2019-09-03] MEDS: MORPHINE SULFATE 4 MG/1ML SYG IV PRN ×3 (09:01→22:42)
[2019-09-03] MEDS: ENOXAPARIN SODIUM 120 MG/0.8ML SQ SCH ×2 (09:01→20:37)
[2019-09-03] MEDS: POTASSIUM PHOS 15 mMOL+NS250ML 250 ML IV PRN (10:34)
[2019-09-03] MEDS: BACITRACIN IRRIG SCH (12:05)
[2019-09-03] MEDS: SODIUM CHLORIDE IRRIG IRRIG SCH (12:05)
[2019-09-03] MEDS ORDERED: MAGNESIUM 2GM PREMIX 50ML 50 ML IV PRN (13:00)
--- NOTE | 2019-09-03 13:27 | NUR ---
DC PLAN VISITED WITH PATIENT. PATIENT STILL ON A ONE TO ONE. PER NURSE SURGEON IS THINKING THAT PATIENT NEEDS TO GO BACK FOR PROCEDURE BUT NO CONCRETE PLANS YET. AT THIS TIME NOT READY FOR TRANSFER TO [facility]. STILL PENDING DR. ANDRADE RECOMMENDATIONS. NO FAMILY AT BEDSIDE. PER WEEKEND LAY OUT MACHINE OPERATORWEB PRESS JOGGER DID NOT FEEL COMFORTABLE SIGNING JENNIFER FOR SOLERA. Addendum: 09/03/19 at 1329 by RICKI STINSON RN CM Amended: Links added.
--- NOTE | 2019-09-03 14:34 | NUR ---
RDSCREEN - LOS X 5 DAYS Pt admitted for Infected femoral bypass graft, UTI. Pt Hx of HTN, DM. Pt tolerating current diet order of Heart healthy diet, with no report of GI distress and Pt reports eating 100% intake. Recommend to add 75gm CCD. Also recommend multivitamin for nutritional support. Pt LBM 08/29/19. Pt monitored labs: BG 122, P 1.8, Mg 1.70, Alb 2.4, Ca 8.3, T. Bili 1.4, AT 104. RD to continue to monitor. Please notify RD as additional nutrition concerns arise. Thank you. Addendum: 09/03/19 at [address] Amended: Links added.
[2019-09-03] MEDS: TRAZODONE HCL 100 MG TABLET PO SCH (20:37)
[2019-09-03] MEDS: MELATONIN 8 MG PO SCH (20:38)
[2019-09-04 00:02] VITALS: BP 140/84
[2019-09-04] MEDS: MORPHINE SULFATE 4 MG/1ML SYG IV PRN ×2 (02:17→09:08)
[2019-09-04] MEDS: TRAMADOL HCL 50 MG TABLET PO SCH ×4 (04:22→20:50)
[2019-09-04] MEDS: VANCOMYCIN 1GM+NS 250ML 250 ML IV SCH ×3 (04:23→20:50)
[2019-09-04] MEDS: SODIUM CHLORIDE 0.9% 1000ML 1,000 ML IV SCH ×2 (04:23→21:11)
[2019-09-04] MEDS: ZOSYN 3.375GM+NS 50ML 50 ML IV SCH ×3 (04:23→20:43)
[2019-09-04 05:22] LABS: MEAN CORPUSCULAR HEMOGLOBIN 30.6 pg (27.0-33.0); MEAN CORPUSCULAR HGB CONC 33.9 g/dL (32.0-36.0); MEAN CORPUSCULAR VOLUME 90.1 fL (79-99); NUCLEATED RED BLOOD CELLS 0.1 % (0.0-0.19); PLATELET COUNT (AUTO) 223 K/uL (130-400); RED BLOOD CELL COUNT(AUTO) 2.29 MIL/uL (4.50-6.20); RED CELL DISTRIBUTION WIDTH 14.5 % (11.0-15.5); WHITE BLOOD COUNT (AUTO) 8.2 K/uL (4.8-10.8)
[2019-09-04 05:36] LABS: INR 1.01 (0.85-1.15); PARTIAL THROMBOPLASTIN TIME 38.1 SEC (26.3-35.5); PROTHROMBIN TIME 10.6 SEC (9.6-11.6)
[2019-09-04 05:44] LABS: HEMATOCRIT 20.6 % (42-54)
[2019-09-04 05:45] LABS: ALBUMIN 2.2 g/dL (3.5-5.0); CREATININE 0.9 mg/dL (0.5-1.5); MAGNESIUM 2.4 mg/dL (1.80-2.40); PHOSPHORUS 1.6 mg/dL (2.5-4.9); POTASSIUM 3.4 mmol/L (3.5-5.1); TOTAL PROTEIN, SERUM 6.1 g/dL (6.0-8.3)
[2019-09-04] MEDS: POTASSIUM CHLORIDE 20MEQ/100ML 100 ML IV PRN (06:02)
[2019-09-04] MEDS ORDERED: PHARMACY COMMUNICATION MISC SCH (06:15)
[2019-09-04] MEDS: POTASSIUM PHOS 15 mMOL+NS250ML 250 ML IV PRN (06:26)
[2019-09-04 07:00] VITALS: BP 152/95
[2019-09-04] MEDS: RIFAMPIN 300 MG CAPSULE PO SCH ×2 (08:48→20:49)
[2019-09-04] MEDS: DOCUSATE SODIUM 100 MG CAP PO SCH ×2 (08:48→20:42)
[2019-09-04] MEDS: FAMOTIDINE 20MG TAB 20 MG TAB PO SCH ×2 (08:49→20:42)
[2019-09-04] MEDS: DOXAZOSIN MESYLATE 2 MG TABLET PO SCH (08:49)
[2019-09-04] MEDS: METOPROLOL TARTRATE 25 MG TAB PO SCH ×2 (08:49→20:42)
[2019-09-04] MEDS: CLOPIDOGREL BISULFATE 75 MG TAB PO SCH (08:49)
[2019-09-04] MEDS: BUPROPION HCL 150 MG TABLET.SA PO SCH (08:49)
[2019-09-04] MEDS: BISACODYL 5 MG TABLET.DR PO SCH ×2 (08:49→20:42)
[2019-09-04] MEDS: ENOXAPARIN SODIUM 120 MG/0.8ML SQ SCH ×2 (08:50→20:43)
[2019-09-04] MEDS ORDERED: HYDROXYZINE HCL 25 MG TABLET PO PRN (09:00)
[2019-09-04 11:01] VITALS: BP 158/83
[2019-09-04] MEDS: FENTANYL 75 MCG/HR PATCH TD SCH (12:45)
--- NOTE | 2019-09-04 13:05 | NUR ---
DC PLAN SPOKE TO NURSING STAFF PATIENT AAOX3. NO LONGER ON A ONE TO ONE. YESTERDAY PATIENT WAS STILL ON ONE TO ONE AND NURSE SAID THAT PATIENT CONFUSED. SAID THAT PATIENT PENDING POSSIBLE SECOND PROCEDURE. PER NURSE TODAY SAID THAT THERE MIGHT BE ANOTHER PROCEDURE BUT THAT DR. TADEO HAD SAID THAT IT WOULD NOT BE DONE UNTIL PATIENT HAD BEEN CLEANED OF INFECTION. JENNIFER SIGNED BY PATIENT. [facility] AND [facility]. Addendum: 09/04/19 at 1308 by RICKI STINSON RN CM Amended: Links added.
[2019-09-04 14:21] LABS: HEMATOCRIT 20.4 % (42-54)
[2019-09-04 15:57] VITALS: BP 156/91
[2019-09-04] MEDS ORDERED: SODIUM CHLORIDE 0.9% 250 ML IV ONE (17:56)
--- NOTE | 2019-09-04 18:01 | NUR ---
UNIT OF RBC'S STARTED ORDERED AND WILL ORDER H & H FOR 2 HOURS AFTER INFUSION.
[2019-09-04 19:37] VITALS: BP 144/96
[2019-09-04] MEDS: TRAZODONE HCL 100 MG TABLET PO SCH (20:42)
[2019-09-04] MEDS: MELATONIN 8 MG PO SCH (20:53)
[2019-09-04 23:47] VITALS: BP 155/93
[2019-09-05 00:21] LABS: BASOPHILS % (AUTO) 0.5 % (0.0-5.0); EOSINOPHILS % (AUTO) 3.6 % (0.0-8.0); HEMATOCRIT 22.9 % (42-54); LYMPHOCYTES % (AUTO) 10.1 % (21.0-51.0); MEAN CORPUSCULAR HEMOGLOBIN 30.4 pg (27.0-33.0); MEAN CORPUSCULAR VOLUME 89.4 fL (79-99); MONOCYTES % (AUTO) 8.8 % (3.0-13.0); NUCLEATED RED BLOOD CELLS 0.1 % (0.0-0.19); PLATELET COUNT (AUTO) 233 K/uL (130-400); RED BLOOD CELL COUNT(AUTO) 2.56 MIL/uL (4.50-6.20); WHITE BLOOD COUNT (AUTO) 8.6 K/uL (4.8-10.8)
[2019-09-05] MEDS: SODIUM CHLORIDE 0.9% 1000ML 1,000 ML IV SCH ×3 (00:45→18:40)
[2019-09-05 04:03] VITALS: BP 159/97
[2019-09-05 05:07] LABS: BASOPHILS % (AUTO) 0.6 % (0.0-5.0); EOSINOPHILS % (AUTO) 3.8 % (0.0-8.0); HEMATOCRIT 23.4 % (42-54); MEAN CORPUSCULAR HEMOGLOBIN 31.5 pg (27.0-33.0); MEAN CORPUSCULAR HGB CONC 35.1 g/dL (32.0-36.0); MEAN CORPUSCULAR VOLUME 89.7 fL (79-99); MONOCYTES % (AUTO) 8.5 % (3.0-13.0); NEUTROPHILS % (AUTO) 77.1 % (40.0-77.0); PLATELET COUNT (AUTO) 241 K/uL (130-400); RED BLOOD CELL COUNT(AUTO) 2.61 MIL/uL (4.50-6.20); RED CELL DISTRIBUTION WIDTH 13.9 % (11.0-15.5); WHITE BLOOD COUNT (AUTO) 8.9 K/uL (4.8-10.8)
[2019-09-05 05:19] LABS: INR 0.99 (0.85-1.15); PARTIAL THROMBOPLASTIN TIME 31.4 SEC (26.3-35.5); PROTHROMBIN TIME 10.4 SEC (9.6-11.6)
[2019-09-05 05:22] LABS: ALBUMIN 2.2 g/dL (3.5-5.0); BILIRUBIN,TOTAL 0.9 mg/dL (0.2-1.0); CREATININE 0.8 mg/dL (0.5-1.5); POTASSIUM 3.4 mmol/L (3.5-5.1); TOTAL PROTEIN, SERUM 6.6 g/dL (6.0-8.3)
[2019-09-05] MEDS: ZOSYN 3.375GM+NS 50ML 50 ML IV SCH ×3 (05:50→21:06)
[2019-09-05] MEDS: TRAMADOL HCL 50 MG TABLET PO SCH ×4 (05:51→22:30)
[2019-09-05] MEDS: VANCOMYCIN 1GM+NS 250ML 250 ML IV SCH ×2 (05:51→14:15)
[2019-09-05 08:00] VITALS: BP 158/92
[2019-09-05] MEDS: DOCUSATE SODIUM 100 MG CAP PO SCH ×2 (09:32→21:07)
[2019-09-05] MEDS: CLOPIDOGREL BISULFATE 75 MG TAB PO SCH (09:32)
[2019-09-05] MEDS: DOXAZOSIN MESYLATE 2 MG TABLET PO SCH (09:32)
[2019-09-05] MEDS: BUPROPION HCL 150 MG TABLET.SA PO SCH (09:32)
[2019-09-05] MEDS: FAMOTIDINE 20MG TAB 20 MG TAB PO SCH ×2 (09:32→21:07)
[2019-09-05] MEDS: BISACODYL 5 MG TABLET.DR PO SCH ×2 (09:33→21:07)
[2019-09-05] MEDS: RIFAMPIN 300 MG CAPSULE PO SCH ×2 (09:33→21:07)
[2019-09-05] MEDS: ENOXAPARIN SODIUM 120 MG/0.8ML SQ SCH ×2 (09:33→21:07)
[2019-09-05] MEDS: METOPROLOL TARTRATE 25 MG TAB PO SCH ×2 (09:33→21:07)
[2019-09-05 11:43] VITALS: BP 161/94
[2019-09-05 15:29] VITALS: BP 154/91
[2019-09-05] MEDS: SODIUM CHLORIDE IRRIG IRRIG SCH (18:40)
[2019-09-05] MEDS: BACITRACIN IRRIG SCH (18:40)
[2019-09-05 19:00] VITALS: BP 165/82
[2019-09-05] MEDS: VANCOMYCIN 1.75 GM in SODIUM CHLORIDE 0.9% 250 ML IV SCH (21:06)
[2019-09-05] MEDS: TRAZODONE HCL 100 MG TABLET PO SCH (21:07)
[2019-09-05] MEDS: MELATONIN 8 MG PO SCH (21:08)
[2019-09-05 23:00] VITALS: BP 155/95
[2019-09-06] MEDS: TRAMADOL HCL 50 MG TABLET PO SCH ×5 (00:26→22:30)
[2019-09-06 03:00] VITALS: BP 143/87
[2019-09-06] MEDS: HYDRALAZINE HCL 20 MG/ML VIAL IV PRN ×2 (03:39→23:47)
[2019-09-06] MEDS: ZOSYN 3.375GM+NS 50ML 50 ML IV SCH ×3 (04:11→21:28)
[2019-09-06 05:47] LABS: BASOPHILS % (AUTO) 0.5 % (0.0-5.0); EOSINOPHILS % (AUTO) 3.4 % (0.0-8.0); HEMATOCRIT 25.3 % (42-54); LYMPHOCYTES % (AUTO) 10.6 % (21.0-51.0); MEAN CORPUSCULAR HEMOGLOBIN 30.5 pg (27.0-33.0); MEAN CORPUSCULAR VOLUME 89.6 fL (79-99); MONOCYTES % (AUTO) 8.4 % (3.0-13.0); NEUTROPHILS % (AUTO) 77.1 % (40.0-77.0); NUCLEATED RED BLOOD CELLS 0.3 % (0.0-0.19); PLATELET COUNT (AUTO) 293 K/uL (130-400); RED BLOOD CELL COUNT(AUTO) 2.82 MIL/uL (4.50-6.20); RED CELL DISTRIBUTION WIDTH 14.4 % (11.0-15.5); WHITE BLOOD COUNT (AUTO) 8.9 K/uL (4.8-10.8)
[2019-09-06 06:06] LABS: ALBUMIN 2.4 g/dL (3.5-5.0); BILIRUBIN,TOTAL 0.7 mg/dL (0.2-1.0); POTASSIUM 3.1 mmol/L (3.5-5.1)
[2019-09-06 06:08] LABS: INR 1.01 (0.85-1.15); PARTIAL THROMBOPLASTIN TIME 33.3 SEC (26.3-35.5); PROTHROMBIN TIME 10.6 SEC (9.6-11.6)
[2019-09-06 06:15] LABS: CREATININE 0.9 mg/dL (0.5-1.5)
[2019-09-06] MEDS ORDERED: POTASSIUM CHLORIDE 20 MEQ ERTAB PO ONE (06:43)
[2019-09-06] MEDS: SODIUM CHLORIDE 0.9% 1000ML 1,000 ML IV SCH ×2 (06:45→16:08)
[2019-09-06] MEDS ORDERED: POTASSIUM CHLORIDE 20 MEQ ERTAB PO PRN (06:45)
[2019-09-06 07:45] VITALS: BP 156/84
[2019-09-06 11:31] VITALS: BP 161/92
[2019-09-06] MEDS: METOPROLOL TARTRATE 25 MG TAB PO SCH ×2 (12:07→21:28)
[2019-09-06] MEDS: FAMOTIDINE 20MG TAB 20 MG TAB PO SCH ×2 (12:07→21:28)
[2019-09-06] MEDS: DOCUSATE SODIUM 100 MG CAP PO SCH ×2 (12:07→21:00)
[2019-09-06] MEDS: DOXAZOSIN MESYLATE 2 MG TABLET PO SCH (12:08)
[2019-09-06] MEDS: CLOPIDOGREL BISULFATE 75 MG TAB PO SCH (12:08)
[2019-09-06] MEDS: BUPROPION HCL 150 MG TABLET.SA PO SCH (12:08)
[2019-09-06] MEDS: BISACODYL 5 MG TABLET.DR PO SCH ×2 (12:08→21:00)
[2019-09-06] MEDS: RIFAMPIN 300 MG CAPSULE PO SCH ×2 (12:09→21:28)
[2019-09-06] MEDS: POTASSIUM CHLORIDE 20 MEQ ERTAB PO SCH ×3 (12:09→21:27)
[2019-09-06] MEDS: ENOXAPARIN SODIUM 120 MG/0.8ML SQ SCH (12:10)
[2019-09-06] MEDS: VANCOMYCIN 1.75 GM in SODIUM CHLORIDE 0.9% 250 ML IV SCH ×2 (12:11→23:47)
[2019-09-06] MEDS: ACETAMINOPHEN 325 MG TAB PO PRN (13:15)
[2019-09-06] MEDS: SODIUM CHLORIDE IRRIG IRRIG SCH (16:04)
[2019-09-06] MEDS: BACITRACIN IRRIG SCH (16:04)
[2019-09-06 16:52] VITALS: BP 150/88
[2019-09-06 19:00] VITALS: BP 152/90
[2019-09-06] MEDS: APIXABAN 5 MG TABLET PO SCH (21:27)
[2019-09-06] MEDS: TRAZODONE HCL 100 MG TABLET PO SCH (21:27)
[2019-09-06] MEDS: MELATONIN 8 MG PO SCH (21:32)
[2019-09-06 23:00] VITALS: BP 172/100
[2019-09-07] MEDS: SODIUM CHLORIDE 0.9% 1000ML 1,000 ML IV SCH ×3 (02:45→23:59)
[2019-09-07 03:00] VITALS: BP 145/88
[2019-09-07 03:48] LABS: BASOPHILS % (AUTO) 0.9 % (0.0-5.0); EOSINOPHILS % (AUTO) 3.6 % (0.0-8.0); HEMATOCRIT 25.5 % (42-54); LYMPHOCYTES % (AUTO) 11.4 % (21.0-51.0); MEAN CORPUSCULAR HEMOGLOBIN 31.4 pg (27.0-33.0); MEAN CORPUSCULAR HGB CONC 34.8 g/dL (32.0-36.0); MEAN CORPUSCULAR VOLUME 90.2 fL (79-99); MONOCYTES % (AUTO) 8.3 % (3.0-13.0); NEUTROPHILS % (AUTO) 75.8 % (40.0-77.0); NUCLEATED RED BLOOD CELLS 0.2 % (0.0-0.19); PLATELET COUNT (AUTO) 304 K/uL (130-400); RED BLOOD CELL COUNT(AUTO) 2.83 MIL/uL (4.50-6.20); RED CELL DISTRIBUTION WIDTH 14.7 % (11.0-15.5); WHITE BLOOD COUNT (AUTO) 8.3 K/uL (4.8-10.8)
[2019-09-07 03:55] LABS: CREATININE 0.9 mg/dL (0.5-1.5); POTASSIUM 3.2 mmol/L (3.5-5.1)
[2019-09-07] MEDS: TRAMADOL HCL 50 MG TABLET PO SCH ×5 (04:30→23:39)
[2019-09-07] MEDS: ZOSYN 3.375GM+NS 50ML 50 ML IV SCH ×5 (04:55→22:23)
[2019-09-07] MEDS: POTASSIUM CHLORIDE 20MEQ/100ML 100 ML IV PRN (06:57)
[2019-09-07 07:00] VITALS: BP 169/91
--- NOTE | 2019-09-07 07:50 | NUR ---
DR. VIVEROS IN ROOM SPEAKING WITH PT. RE:PLAN OF CARE. DR. VIVEROS PROCEEDED TO REMOVE BILATERAL FEMORAL DRAIN TUBES. LIGHT DRSG APPLIED PER DR. VIVEROS ORDER.
[2019-09-07] MEDS: CLOPIDOGREL BISULFATE 75 MG TAB PO SCH (08:23)
[2019-09-07] MEDS: METOPROLOL TARTRATE 25 MG TAB PO SCH ×2 (08:23→21:47)
[2019-09-07] MEDS: BUPROPION HCL 150 MG TABLET.SA PO SCH (08:23)
[2019-09-07] MEDS: FAMOTIDINE 20MG TAB 20 MG TAB PO SCH ×2 (08:23→21:46)
[2019-09-07] MEDS: APIXABAN 5 MG TABLET PO SCH ×2 (08:24→21:46)
[2019-09-07] MEDS: DOCUSATE SODIUM 100 MG CAP PO SCH ×2 (08:24→21:47)
[2019-09-07] MEDS: DOXAZOSIN MESYLATE 2 MG TABLET PO SCH (08:24)
[2019-09-07] MEDS: RIFAMPIN 300 MG CAPSULE PO SCH ×2 (08:24→21:47)
[2019-09-07] MEDS: BISACODYL 5 MG TABLET.DR PO SCH ×2 (08:24→21:46)
[2019-09-07] MEDS: FENTANYL 75 MCG/HR PATCH TD SCH ×2 (09:00→11:13)
[2019-09-07] MEDS ORDERED: LOSARTAN 100 MG TABLET PO SCH (09:00)
[2019-09-07] MEDS: VANCOMYCIN 1.75 GM in SODIUM CHLORIDE 0.9% 250 ML IV SCH ×2 (10:25→21:46)
[2019-09-07 11:00] VITALS: BP 155/88
--- NOTE | 2019-09-07 13:00 | NUR ---
Transfer of care Received patient from [place]. Patient awake and alert, VSS, 0 s/s of respiratory distress. Patient up to chair. With dressing to right groin area, moderate draining noted due to recent d/c of drains, will continue to monitor. With kelly in place, output orange with come cloudiness noted. PICC line to IV fluids. No family at bedside, call light within reach. On telemetry, NSR 82.
[2019-09-07 15:00] VITALS: BP 175/95
[2019-09-07] MEDS: AMLODIPINE BESYLATE 5 MG TAB PO SCH (16:09)
--- NOTE | 2019-09-07 18:03 | NUR ---
NOTIFIED DR. José Miguel MCKENNA RE:(+) BLOOD CULTURE RESULT. VERBALIZED UNDERSTANDING. NO NEW ORDERS RECEIVED. Addendum: 09/07/19 at 1803 by STAN RONDON RN RN ENTRY ERROR.
[2019-09-07 19:00] VITALS: BP 140/90
[2019-09-07] MEDS: TERAZOSIN HCL 2 MG CAPSULE PO SCH (21:00)
[2019-09-07] MEDS: TRAZODONE HCL 100 MG TABLET PO SCH (21:47)
[2019-09-07] MEDS: MELATONIN 8 MG PO SCH (21:48)
[2019-09-07 23:00] VITALS: BP 145/90
[2019-09-08] VITALS (7 sets, daily range): BP systolic 107–170; BP diastolic 74–96
[2019-09-08] MEDS: TRAMADOL HCL 50 MG TABLET PO SCH ×4 (03:58→22:30)
[2019-09-08] MEDS: ZOSYN 3.375GM+NS 50ML 50 ML IV SCH ×3 (05:14→22:21)
[2019-09-08] MEDS ORDERED: AMLODIPINE BESYLATE 5 MG TAB PO SCH (09:00)
[2019-09-08] MEDS: VANCOMYCIN 1.75 GM in SODIUM CHLORIDE 0.9% 250 ML IV SCH ×2 (09:00→21:00)
--- NOTE | 2019-09-08 09:09 | NUR ---
DR. José Miguel MCKENNA IN ROOM WITH PT.
[2019-09-08] MEDS: BUSPIRONE HCL 5 MG TABLET PO SCH (09:40)
[2019-09-08] MEDS: RIFAMPIN 300 MG CAPSULE PO SCH ×2 (09:40→22:20)
[2019-09-08] MEDS: BISACODYL 5 MG TABLET.DR PO SCH ×2 (09:40→22:19)
[2019-09-08] MEDS: DOCUSATE SODIUM 100 MG CAP PO SCH ×2 (09:40→22:19)
[2019-09-08] MEDS: BUPROPION HCL 150 MG TABLET.SA PO SCH (09:40)
[2019-09-08] MEDS: METOPROLOL TARTRATE 25 MG TAB PO SCH (09:40)
[2019-09-08] MEDS: APIXABAN 5 MG TABLET PO SCH ×2 (09:41→22:20)
[2019-09-08] MEDS: FAMOTIDINE 20MG TAB 20 MG TAB PO SCH ×2 (09:41→22:20)
[2019-09-08] MEDS: LOSARTAN 100 MG TABLET PO SCH (09:41)
[2019-09-08] MEDS: DOXAZOSIN MESYLATE 2 MG TABLET PO SCH (09:41)
[2019-09-08] MEDS: AMLODIPINE BESYLATE 5 MG TAB PO SCH (09:41)
[2019-09-08] MEDS: CLOPIDOGREL BISULFATE 75 MG TAB PO SCH (09:41)
[2019-09-08] MEDS: SODIUM CHLORIDE 0.9% 1000ML 1,000 ML IV SCH ×3 (09:50→22:32)
[2019-09-08] MEDS: TRAZODONE HCL 100 MG TABLET PO SCH (22:19)
[2019-09-08] MEDS: TERAZOSIN HCL 2 MG CAPSULE PO SCH (22:20)
[2019-09-08] MEDS: METOPROLOL TARTRATE 50 MG TAB PO SCH (22:21)
[2019-09-08] MEDS: MELATONIN 8 MG PO SCH (22:27)
[2019-09-09 03:53] VITALS: BP 159/89
[2019-09-09] MEDS: TRAMADOL HCL 50 MG TABLET PO SCH ×2 (04:30→10:30)
[2019-09-09] MEDS: ZOSYN 3.375GM+NS 50ML 50 ML IV SCH ×2 (05:32→14:20)
[2019-09-09] MEDS: DOCUSATE SODIUM 100 MG CAP PO SCH (09:00)
[2019-09-09] MEDS: BISACODYL 5 MG TABLET.DR PO SCH (09:00)
[2019-09-09 09:07] VITALS: BP 158/99
[2019-09-09] MEDS: VANCOMYCIN 1.75 GM in SODIUM CHLORIDE 0.9% 250 ML IV SCH (10:24)
[2019-09-09] MEDS: AMLODIPINE BESYLATE 5 MG TAB PO SCH (10:27)
[2019-09-09] MEDS: RIFAMPIN 300 MG CAPSULE PO SCH (10:27)
[2019-09-09] MEDS: FAMOTIDINE 20MG TAB 20 MG TAB PO SCH (10:27)
[2019-09-09] MEDS: METOPROLOL TARTRATE 50 MG TAB PO SCH (10:27)
[2019-09-09] MEDS: LOSARTAN 100 MG TABLET PO SCH (10:28)
[2019-09-09] MEDS: CLOPIDOGREL BISULFATE 75 MG TAB PO SCH (10:28)
[2019-09-09] MEDS: APIXABAN 5 MG TABLET PO SCH (10:28)
[2019-09-09] MEDS: DOXAZOSIN MESYLATE 2 MG TABLET PO SCH (10:28)
[2019-09-09] MEDS: BUPROPION HCL 150 MG TABLET.SA PO SCH (10:28)
[2019-09-09] MEDS: BUSPIRONE HCL 5 MG TABLET PO SCH (10:28)
--- NOTE | 2019-09-09 11:47 | NUR ---
FRED SUAREZ FROM [facility] CALLED SAID PATIENT ACCEPTED AT 09. LET NURSE AND ASSISTANT ATHLETIC TRAINER KNOW. MED REC GIVEN TO ASSISTANT ATHLETIC TRAINER. PENDING HOUSE TO SIGN MOT. PATIENT WILL GO VIA EMS FOR PATIENT SAFETY. Addendum: 09/09/19 at 1148 by RICKI STINSON RN CM Amended: Links added.
[2019-09-09 12:00] VITALS: BP 145/74
[2019-09-09] MEDS ORDERED: METOPROLOL TARTRATE 1 MG/ML 5ML VIAL IV SCH (14:45)
--- NOTE | 2019-09-09 14:50 | NUR ---
DISCHARGE DISCHARGE INSTRUCTIONS GIVEN TO PATIENT, NO NEW MEDICATIONS ORDERED, SIMPLE DRESSING CHANGES DONE TO BILATERAL FEMORAL SITES. DISCHARGED WITH MORA AND PICC LINE TO [facility] FOR CONTINUATION OF ANTIBIOTICS. REPORT CALLED TO YANET ANDRADE AT [facility].
== END 2019-09-09 15:00 | DRG 252 ==
LOC: EDH 08:49 → EDHIP 15:47 → 2DH 19:16 → 2CH 08-31 08:34 → 2AH 09-04 16:51
PROVIDERS: ADMIT Family Medicine; ATTEND Family Medicine
PROC: 04PY0JZ Removal of Synthetic Substitute from Lower Artery, Open Approach (ICD-10-PCS; principal; 2019-08-31 07:40)
PROC: 04QL0ZZ Repair Left Femoral Artery, Open Approach (ICD-10-PCS; 2019-08-31 07:40)
PROC: 02HV33Z Insertion of Infusion Device into Superior Vena Cava, Percutaneous Approach (ICD-10-PCS; 2019-09-03)
PROC: 5A1935Z Respiratory Ventilation, Less than 24 Consecutive Hours (ICD-10-PCS; 2019-09-03)
PROC: 0BH17EZ Insertion of Endotracheal Airway into Trachea, Via Natural or Artificial Opening (ICD-10-PCS; 2019-09-03)
PROC: 30233K1 Transfusion of Nonautologous Frozen Plasma into Peripheral Vein, Percutaneous Approach (ICD-10-PCS; 2019-09-07)
PROC: 30233N1 Transfusion of Nonautologous Red Blood Cells into Peripheral Vein, Percutaneous Approach (ICD-10-PCS; 2019-09-07)
PROC: 30233R1 Transfusion of Nonautologous Platelets into Peripheral Vein, Percutaneous Approach (ICD-10-PCS; 2019-09-07)
DX: T82.7XXA Infection and inflammatory reaction due to other cardiac and vascular devices, implants and grafts, initial encounter (principal); A41.50 Gram-negative sepsis, unspecified; J96.90 Respiratory failure, unspecified, unspecified whether with hypoxia or hypercapnia; I71.00 Dissection of unspecified site of aorta; J96.00 Acute respiratory failure, unspecified whether with hypoxia or hypercapnia; R57.8 Other shock; R65.21 Severe sepsis with septic shock; N39.0 Urinary tract infection, site not specified; D62 Acute posthemorrhagic anemia; I82.431 Acute embolism and thrombosis of right popliteal vein; D68.9 Coagulation defect, unspecified; R45.851 Suicidal ideations; L02.214 Cutaneous abscess of groin; L03.314 Cellulitis of groin; E66.9 Obesity, unspecified; I10 Essential (primary) hypertension; B96.20 Unspecified Escherichia coli [E. coli] as the cause of diseases classified elsewhere; F32.9 Major depressive disorder, single episode, unspecified; E11.51 Type 2 diabetes mellitus with diabetic peripheral angiopathy without gangrene; E66.01 Morbid (severe) obesity due to excess calories; E78.5 Hyperlipidemia, unspecified; E87.6 Hypokalemia; G62.9 Polyneuropathy, unspecified; G89.4 Chronic pain syndrome; K46.9 Unspecified abdominal hernia without obstruction or gangrene; Z79.01 Long term (current) use of anticoagulants; Z68.39 Body mass index [BMI] 39.0-39.9, adult; Z85.828 Personal history of other malignant neoplasm of skin; Z83.3 Family history of diabetes mellitus; Z93.3 Colostomy status; Y83.8 Other surgical procedures as the cause of abnormal reaction of the patient, or of later complication, without mention of misadventure at the time of the procedure; Y92.89 Other specified places as the place of occurrence of the external cause
CPT/HCPCS: 36415; 36430; 36600; 71045; 75635; 76882; 80048; 80053; 80202; 81001; 82435; 82550; 82803; 82947; 82948; 83605; 83735; 83874; 84100; 84132; 84145; 84295; 84484; 85014; 85018; 85025; 85027; 85378; 85384; 85610; 85730; 86850; 86900; 86901; 86922; 86927; 87040; 87070; 87076; 87077; 87088; 87186; 87205; 88300; 93005; 93925; 93971; 94002; 94003; 97039; A4344; A4606; A7048; C1751; C1894; G0378; J0330; J0360; J0610; J0885; J1170; J1644; J1650; J1756; J1885; J1940; J2250; J2270; J2405; J2543; J2704; J3010; J3370; J3475; J3480; J3490; J7030; J7040; J7060; P9012; P9016; P9017; P9034; Q9967

== ENCOUNTER 2020-03-05 11:51 | Inpatient (IN) | payer OTHER ==
[~2020-03-05] VITALS: Ht 188 cm; Wt 111.1 kg
[2020-03-05] VITALS (9 sets, daily range): BP systolic 96–144; BP diastolic 48–98
[~2020-03-05 11:51] MED LIST: AMLO-258 PO; ASPI-1026 PO; BUSP15TA3 PO; LOSA100T58 PO; PANT40TA55 PO; TERA2CAP4 PO
[2020-03-05] MEDS ORDERED: SODIUM CHLORIDE 0.9% 1000ML 3,000 ML IV ONE (12:20)
[2020-03-05] MEDS ORDERED: ZOSYN 3.375GM+NS 50ML 50 ML IV ONE (12:22)
[2020-03-05 12:44] LABS: ABG BASE EXCESS -15.2 mmol/L (-2.0-3.0); ABG HCO3 10.1 mmol/L (21.0-28.0); ABG OXYGEN SATURATION 94.4 % (95.0-99.0); ABG PCO2 24 mmHg (35-48)
[2020-03-05 13:53] LABS: BASOPHILS % (AUTO) 0.2 % (0.0-5.0); HEMATOCRIT 51.4 % (42-54); LYMPHOCYTES % (AUTO) 4.6 % (21.0-51.0); MEAN CORPUSCULAR HEMOGLOBIN 30.9 pg (27.0-33.0); MEAN CORPUSCULAR HGB CONC 29.4 g/dL (32.0-36.0); MEAN CORPUSCULAR VOLUME 105.1 fL (79-99); MONOCYTES % (AUTO) 4.7 % (3.0-13.0); PLATELET COUNT (AUTO) 246 K/uL (130-400); RED BLOOD CELL COUNT(AUTO) 4.89 MIL/uL (4.50-6.20)
[2020-03-05 14:08] LABS: CARBON DIOXIDE 13 mmol/L (21-32); CHLORIDE 103 mmol/L (101-111); CREATININE 3.1 mg/dL (0.5-1.5); GLOMERULAR FILTR. RATE CALC 22 mL/min (>60); POTASSIUM 4.2 mmol/L (3.5-5.1); SODIUM SERUM 142 mmol/L (136-145)
[2020-03-05 14:15] LABS: INR 1.01 (0.85-1.15); PROTHROMBIN TIME 10.9 SEC (9.6-11.6)
[2020-03-05 14:19] LABS: ALANINE AMINOTRANSFERASE 30 U/L (12-78); ALBUMIN 4.5 g/dL (3.5-5.0); ASPARTATE AMINOTRANSFERASE 12 U/L (10-37); BILIRUBIN,TOTAL 0.6 mg/dL (0.2-1.0); CREATINE KINASE, TOTAL 171 U/L (21-232); MYOGLOBIN 534 ng/mL (10-92); TOTAL PROTEIN, SERUM 8.5 g/dL (6.0-8.3); TROPONIN I < 0.04 ng/mL (0.00-0.06)
[2020-03-05 14:31] LABS: GLUCOSE,RANDOM 946 mg/dL (70-105); UREA NITROGEN, BLOOD 75 mg/dL (7-18)
[2020-03-05 15:18] LABS: APPEARANCE,URINE Clear (CLEAR); BILIRUBIN,URINE Negative (NEGATIVE); COLOR,URINE Yellow (YELLOW); GLUCOSE, URINE (UA) >=1000 mg/dL (NEGATIVE); KETONES,URINE >=80 mg/dL (NEGATIVE); LEUKOCYTE ESTERASE ,URINE Negative (NEGATIVE); NITRATE,URINE Negative (NEGATIVE); OCCULT BLOOD,URINE Trace (NEGATIVE); PROTEIN,URINE Trace mg/dL (NEGATIVE); UROBILINOGEN,URINE 0.2 mg/dL (0.2-1.0)
[2020-03-05 15:31] LABS: BACTERIA,URINE Rare /HPF (None Seen)
[2020-03-05 15:32] LABS: AMORPHOUS SEDIMENT,UR Rare /LPF (None Seen); SQUAMOUS EPITHELIAL CELL,UR Rare /HPF (0-2)
[2020-03-05] MEDS ORDERED: LACTATED RINGERS 1000ML 1,000 ML IV ONE (15:55)
[2020-03-05] MEDS ORDERED: INSULIN HUMULIN R 100 UNIT/ML 3ML ONE (15:56)
[2020-03-05] MEDS ORDERED: SODIUM CHLORIDE 0.9% 100 ML IV ONE (15:57)
[2020-03-05] MEDS ORDERED: DiphenhydrAMINE HCL 50 MG/ML VIAL IV PRN (16:00)
[2020-03-05] MEDS ORDERED: MAG HYDROX/AL HYDROX/SIMETH ES 30 ML SUSP UDCUP PO PRN (16:00)
[2020-03-05] MEDS ORDERED: DIPHENHYDRAMINE HCL 25 MG CAPSULE PO PRN (16:00)
[2020-03-05] MEDS ORDERED: ACETAMINOPHEN 325 MG TAB PO PRN ×2 (16:00)
[2020-03-05] MEDS ORDERED: GUAIFENESIN-DM 200/20 MG 10 ML PO PRN (16:00)
[2020-03-05] MEDS ORDERED: ONDANSETRON HCL 4 MG/2 ML VIAL IV PRN (16:00)
[2020-03-05] MEDS ORDERED: HYDRALAZINE HCL 20 MG/ML VIAL IV PRN (16:00)
[2020-03-05] MEDS ORDERED: NITROGLYCERIN 0.4 MG SL TAB SL PRN (16:00)
[2020-03-05] MEDS ORDERED: IPRATROPIUM/ALBUTEROL SULFATE 3 ML SOLUTION IH PRN (16:00)
--- NOTE | 2020-03-05 16:00 | NUR ---
Call from Sister Received from Sister, "Brittney Marcial who states the patient is a poor historian and denies having gastric CA. [facility] patient was seen by Dr. 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 lives alone at [facility] and sister Kacey Be (ph: [phone]) lives about [place]. Requesting patient to sign JENNIFER from patient to be able to release info to both sisters. Informed that patient was still in the ED and CM will follow up tomorrow. CD
[2020-03-05] MEDS ORDERED: POTASSIUM CHLORIDE 20MEQ/100ML 100 ML IV PRN ×2 (16:15)
[2020-03-05] MEDS ORDERED: INSULIN REGULAR, HUMAN 3ML 100 UNIT in SODIUM CHLORIDE 0.9% 99 ML IV PRN ×2 (16:15)
[2020-03-05] MEDS ORDERED: DEXTROSE 50%-WATER 50 ML DISP.SYRIN IV PRN (16:15)
[2020-03-05] MEDS ORDERED: GLUCAGON 1MG KIT 1 MG ML IM PRN (16:15)
[2020-03-05] MEDS ORDERED: POTASSIUM CHLORIDE 10% ELIXIR 20 MEQ/15 ML UDCUP PO PRN (16:15)
[2020-03-05 19:08] LABS: CREATININE 1.7 mg/dL (0.5-1.5); POTASSIUM 3.9 mmol/L (3.5-5.1)
[2020-03-05] MEDS ORDERED: HEPARIN SODIUM 5000UNIT/ML 1ML VIAL SQ SCH (21:00)
[2020-03-05] MEDS ORDERED: HYDROMORPHONE HCL 0.5 MG/0.5 ML ML ONE (21:17)
[2020-03-05] MEDS ORDERED: HYDROMORPHONE HCL 0.5 MG/0.5 ML ML IVP PRN (21:30)
[2020-03-05] MEDS: LACTATED RINGERS 1000ML 1,000 ML IV SCH ×2 (21:34→22:35)
[2020-03-05 23:49] LABS: CREATININE 2.4 mg/dL (0.5-1.5); POTASSIUM 3.8 mmol/L (3.5-5.1)
[2020-03-06] VITALS (13 sets, daily range): BP systolic 114–184; BP diastolic 46–100
[2020-03-06] MEDS ORDERED: MORPHINE SULFATE 5 MG/ML VIAL IV ONE (00:45)
[2020-03-06] MEDS ORDERED: INSULIN HUMULIN R 100 UNIT/ML 3ML ONE (03:16)
[2020-03-06] MEDS ORDERED: SODIUM CHLORIDE 0.9% 100 ML IV ONE (03:16)
[2020-03-06] MEDS: LACTATED RINGERS 1000ML 1,000 ML IV SCH (03:26)
[2020-03-06 04:17] LABS: ABG BASE EXCESS -2.6 mmol/L (-2.0-3.0); ABG HCO3 21.2 mmol/L (21.0-28.0); ABG OXYGEN SATURATION 92.8 % (95.0-99.0); ABG PCO2 34 mmHg (35-48)
[2020-03-06 06:42] LABS: CREATININE 2.2 mg/dL (0.5-1.5); POTASSIUM 3.2 mmol/L (3.5-5.1)
[2020-03-06] MEDS: POTASSIUM CHLORIDE 20 MEQ ERTAB PO PRN (07:48)
[2020-03-06] MEDS: INSULIN GLARGINE 100 UNITS/ML 10 ML VIAL SQ SCH ×2 (08:00→20:58)
[2020-03-06] MEDS: ENOXAPARIN SODIUM 30 MG/0.3 ML SQ SCH (08:29)
[2020-03-06] MEDS: DEXTROSE 5%-WATER 1,000 ML IV SCH ×3 (08:54→23:58)
[2020-03-06] MEDS ORDERED: FAMOTIDINE/PF 20 MG/2 ML VIAL IV SCH (09:00)
[2020-03-06 09:20] LABS: CREATININE,URINE RANDOM 171 mg/dL (30-135); SODIUM,URINE RANDOM < 15 mmol/l (40-220)
[2020-03-06] MEDS: METOPROLOL TARTRATE 25 MG TAB PO SCH ×2 (09:21→20:49)
[2020-03-06] MEDS: INSULIN LISPRO 100 UNIT/ML 3ML SQ SCH ×5 (11:30→22:00)
--- NOTE | 2020-03-06 11:48 | NUR ---
DC PLAN PATIENT WAS IN COVID ISOLATION NOT ABLE TO SPEAK TO HIM THIS MORNING. CM DIRECTOR STATES SISTER SPOKE TO HER AND WILL PLACE NOTE. PER SISTER PATIENT POOR HISTORIAN. COLETTE WILL CONTINUE TO FOLLOW. Addendum: 03/06/20 at 1149 by RICKI STINSON RN CM Amended: Links added.
--- NOTE | 2020-03-06 11:57 | NUR ---
JENNIFER Spoke to patient Geoffrey Ortiz in room 422. Informed patient of conversation with sister. Patient agreeable to allowing staff give information to both June Marcial and Kacey Be over the phone. Patient signed JENNIFER. Called sister June at [phone] and informed CM followed up on conversation from 03/05/20 and patient agreeable to telephone consent. Updated primary nurse of JENNIFER for the sisters and requested the info be placed on patient's Kardex. JENNIFER placed in chart.
[2020-03-06 12:30] LABS: CREATININE 2.1 mg/dL (0.5-1.5); POTASSIUM 4.5 mmol/L (3.5-5.1)
--- NOTE | 2020-03-06 16:33 | NUR ---
FAMILY Sisters called with concerns about pt. Informed them that pt did receive a meal tray and that I would make sure he has water. Wanted to know results of test and specific diagnosis. I did let them know that I would have MD call them to answer their questions. Asked that Oncologist be consulted and ST. I did let Dr. Orozco know of sisters concerns.
[2020-03-06 19:10] LABS: CREATININE 1.9 mg/dL (0.5-1.5); POTASSIUM 4.6 mmol/L (3.5-5.1)
[2020-03-06 22:48] LABS: CREATININE,URINE RANDOM 184 mg/dL (30-135); SODIUM,URINE RANDOM < 15 mmol/l (40-220)
--- NOTE | 2020-03-07 03:34 | NUR ---
PATIENT RESTING IN BED. NO DISTRESS NOTED. NO C/O CHEST PAIN OR SOB. OCCASIONAL YELLING WHEN HE NEEDS ASSISTANCE, REFUSING TO USE CALL LIGHT AT BEDSIDE. NON WORKING IV TO SONIYA, REFUSING REMOVAL. WILL CONTINUE TO MONITOR.
[2020-03-07 04:03] VITALS: BP 139/86
[2020-03-07 05:09] LABS: HEMATOCRIT 46.7 % (42-54); MEAN CORPUSCULAR HEMOGLOBIN 31.3 pg (27.0-33.0); MEAN CORPUSCULAR HGB CONC 32.3 g/dL (32.0-36.0); MEAN CORPUSCULAR VOLUME 96.7 fL (79-99); PLATELET COUNT (AUTO) 141 K/uL (130-400); RED BLOOD CELL COUNT(AUTO) 4.83 MIL/uL (4.50-6.20); RED CELL DISTRIBUTION WIDTH 13.9 % (11.0-15.5); WHITE BLOOD COUNT (AUTO) 12.5 K/uL (4.8-10.8)
[2020-03-07 05:20] LABS: HEMOGLOBIN A1C 11.4 % (4.0-6.0)
[2020-03-07 05:23] LABS: BAND NEUTROPHILS % (MANUAL) 2 % (0-2); BASOPHILS % (MANUAL) 1 % (0-2); EOSINOPHILS % (MANUAL) 1 % (1-6); LYMPHOCYTES % (MANUAL) 9 % (22-44); MAN.DIFF COMMENT-IMPRESSION MANUAL DIFFERENTIAL; MONOCYTES % (MANUAL) 8 % (2-9); SEGMENTED NEUTROPHILS % 79 % (40-70)
[2020-03-07 05:46] LABS: ALBUMIN 3.4 g/dL (3.5-5.0); BILIRUBIN,TOTAL 0.7 mg/dL (0.2-1.0); CREATININE 1.8 mg/dL (0.5-1.5); MAGNESIUM 2.9 mg/dL (1.80-2.40); POTASSIUM 3.9 mmol/L (3.5-5.1); THYROID STIMULATING HORMONE 0.85 uIU/mL (0.36-3.74); TOTAL PROTEIN, SERUM 7.5 g/dL (6.0-8.3); URIC ACID 13.2 mg/dL (2.6-7.2)
--- NOTE | 2020-03-07 06:00 | NUR ---
SUGARS IN 400S. ADMINISTERED ORDERED INSULIN COVERAGE
[2020-03-07] MEDS: INSULIN LISPRO 100 UNIT/ML 3ML SQ SCH ×7 (06:18→21:27)
[2020-03-07] MEDS: INSULIN GLARGINE 100 UNITS/ML 10 ML VIAL SQ SCH ×2 (06:19→21:27)
[2020-03-07 07:00] VITALS: BP 137/75
--- NOTE | 2020-03-07 08:00 | NUR ---
AM ASSESSMENT PT LAYING IN BED RESTING. A/O X 3; FORGETFUL. NO SOB. NO DISTRESS NOTED. DENIES CHEST PAIN OR DISCOMFORT. TELE: SR. DENIES N/V AND/OR DIARRHEA. PT C/O OF GBW & UNSTEADY GAIT. PT HAS BEEN ON BEDREST. PT ASKING WHEN ND TO ROUND. PT INFORMED HOSPITALIST TO ROUND TODAY, NO SPECIFIC TIME. PT THEN STATES MD HAS "DONE NOTHING AND IS DOING NOTHING FOR HIM." PT STATES, "AND I WOULD LIKE TO GO HOME." PT INFORMED IF HE WERE TO LEAVE HOSPITAL NOW, IT WOULD BE AMA. AMA EXPLAINED TO PT. PT STATES UNDERSTANDING. REINFORCED TO PT HE WOULD BE RESPONSIBLE FOR HIMSELF IF SOMETHING WERE TO HAPPEN TO HIM, HOSPITAL NOR MD WOULD BE LIABLE. PT STATES UNDERSTANDING AND MENTIONS HAVING EXPERIENCE IN THE MEDICAL FIELD. PT TO CALL SISTER. INSTRUCTED TO CALL FOR ASSISTANCE. CALL JOSE LUIS W/IN REACH.
[2020-03-07] MEDS: FAMOTIDINE 20MG TAB 20 MG TAB PO SCH (08:48)
[2020-03-07] MEDS: Vitamin B Complex/Vit C/Folic Acid PO SCH (08:48)
[2020-03-07] MEDS: METOPROLOL TARTRATE 25 MG TAB PO SCH ×2 (08:49→20:24)
[2020-03-07] MEDS: ENOXAPARIN SODIUM 30 MG/0.3 ML SQ SCH (08:49)
[2020-03-07] MEDS: THIAMINE HCL 100 MG/ML 2ML VIAL IVP SCH (08:49)
--- NOTE | 2020-03-07 10:26 | NUR ---
MD NOTIFICATION DR MIXON PT HAS BEEN WANTING TO LEAVE AMA SINCE EARLY THIS AM. PT'S SISTER HAS ATTEMPTED TO GET A HOLD OF MD THRU TELEPHONE. PT'S SISTER NOW IN ER ENTRANCE REQUESTING TO SPEAK TO MD REGARDING PT'S STATUS. DR MIXON TO SPEAK W/PT'S SISTER @ ER ENTRANCE.
[2020-03-07 10:47] LABS: CREATININE 1.8 mg/dL (0.5-1.5); POTASSIUM 3.8 mmol/L (3.5-5.1)
[2020-03-07 11:00] VITALS: BP 128/70
[2020-03-07 15:00] VITALS: BP 147/91
[2020-03-07 17:27] LABS: CREATININE 1.6 mg/dL (0.5-1.5); POTASSIUM 3.5 mmol/L (3.5-5.1)
[2020-03-07] MEDS: DEXTROSE 5%-WATER 1,000 ML IV SCH ×2 (17:48→23:56)
[2020-03-07 19:22] VITALS: BP 148/88
[2020-03-07] MEDS: POTASSIUM CHLORIDE 20 MEQ ERTAB PO PRN (20:24)
[2020-03-07 23:02] VITALS: BP 138/83
[2020-03-07 23:45] LABS: CREATININE 1.5 mg/dL (0.5-1.5); POTASSIUM 3.3 mmol/L (3.5-5.1)
[2020-03-08 03:45] VITALS: BP 137/57
[2020-03-08] MEDS: DEXTROSE 5%-WATER 1,000 ML IV SCH ×2 (04:04→18:59)
[2020-03-08] MEDS: LACTULOSE 20 GM/30 ML UDCUP PO PRN (05:39)
[2020-03-08] MEDS: INSULIN LISPRO 100 UNIT/ML 3ML SQ SCH ×7 (06:00→21:21)
[2020-03-08] MEDS: INSULIN GLARGINE 100 UNITS/ML 10 ML VIAL SQ SCH ×2 (06:01→21:22)
[2020-03-08 07:00] VITALS: BP 130/89
[2020-03-08] MEDS: FAMOTIDINE 20MG TAB 20 MG TAB PO SCH (08:39)
[2020-03-08] MEDS: METOPROLOL TARTRATE 25 MG TAB PO SCH ×2 (08:39→20:55)
[2020-03-08] MEDS: Vitamin B Complex/Vit C/Folic Acid PO SCH (08:39)
[2020-03-08] MEDS: THIAMINE HCL 100 MG/ML 2ML VIAL IVP SCH (08:39)
[2020-03-08] MEDS: ENOXAPARIN SODIUM 30 MG/0.3 ML SQ SCH (08:40)
[2020-03-08 11:00] VITALS: BP 127/69
[2020-03-08 16:00] VITALS: BP 144/96
[2020-03-08 19:03] VITALS: BP 150/97
[2020-03-08] MEDS ORDERED: INSULIN GLARGINE 100 UNITS/ML 10 ML VIAL SQ SCH (21:00)
[2020-03-08 23:21] VITALS: BP 142/81
[2020-03-09] MEDS: DEXTROSE 5%-WATER 1,000 ML IV SCH ×2 (04:41→23:31)
[2020-03-09 04:45] VITALS: BP 132/83
[2020-03-09 05:20] LABS: BASOPHILS % (AUTO) 0.5 % (0.0-5.0); EOSINOPHILS % (AUTO) 3.4 % (0.0-8.0); HEMATOCRIT 39.9 % (42-54); LYMPHOCYTES % (AUTO) 13.3 % (21.0-51.0); MEAN CORPUSCULAR HEMOGLOBIN 30.8 pg (27.0-33.0); MEAN CORPUSCULAR HGB CONC 33.1 g/dL (32.0-36.0); MEAN CORPUSCULAR VOLUME 93.2 fL (79-99); MONOCYTES % (AUTO) 7.8 % (3.0-13.0); NEUTROPHILS % (AUTO) 74.5 % (40.0-77.0); PLATELET COUNT (AUTO) 126 K/uL (130-400); RED BLOOD CELL COUNT(AUTO) 4.28 MIL/uL (4.50-6.20); RED CELL DISTRIBUTION WIDTH 12.9 % (11.0-15.5); WHITE BLOOD COUNT (AUTO) 10.2 K/uL (4.8-10.8)
[2020-03-09 05:30] LABS: CREATININE 1.1 mg/dL (0.5-1.5); POTASSIUM 3.4 mmol/L (3.5-5.1)
[2020-03-09] MEDS: INSULIN GLARGINE 100 UNITS/ML 10 ML VIAL SQ SCH ×2 (06:02→21:44)
[2020-03-09] MEDS: INSULIN LISPRO 100 UNIT/ML 3ML SQ SCH ×7 (06:02→21:00)
[2020-03-09 08:00] VITALS: BP 174/90
[2020-03-09] MEDS: FAMOTIDINE 20MG TAB 20 MG TAB PO SCH (10:26)
[2020-03-09] MEDS: LACTULOSE 20 GM/30 ML UDCUP PO PRN (10:26)
[2020-03-09] MEDS: Vitamin B Complex/Vit C/Folic Acid PO SCH (10:27)
[2020-03-09] MEDS: METOPROLOL TARTRATE 25 MG TAB PO SCH ×2 (10:28→21:45)
[2020-03-09] MEDS: ENOXAPARIN SODIUM 30 MG/0.3 ML SQ SCH (10:29)
[2020-03-09 11:47] VITALS: BP 127/82
[2020-03-09] MEDS: THIAMINE HCL 100 MG/ML 2ML VIAL IVP SCH (12:19)
[2020-03-09 16:00] VITALS: BP 141/73
[2020-03-09 20:12] VITALS: BP 151/86
[2020-03-10 00:12] VITALS: BP 145/85
[2020-03-10 04:12] VITALS: BP 145/82
[2020-03-10 06:06] LABS: BASOPHILS % (AUTO) 0.3 % (0.0-5.0); EOSINOPHILS % (AUTO) 4.2 % (0.0-8.0); HEMATOCRIT 38.7 % (42-54); LYMPHOCYTES % (AUTO) 13.2 % (21.0-51.0); MEAN CORPUSCULAR HEMOGLOBIN 30.5 pg (27.0-33.0); MEAN CORPUSCULAR HGB CONC 32.8 g/dL (32.0-36.0); MONOCYTES % (AUTO) 8.8 % (3.0-13.0); PLATELET COUNT (AUTO) 131 K/uL (130-400); RED BLOOD CELL COUNT(AUTO) 4.16 MIL/uL (4.50-6.20); RED CELL DISTRIBUTION WIDTH 12.8 % (11.0-15.5); WHITE BLOOD COUNT (AUTO) 10.2 K/uL (4.8-10.8)
[2020-03-10 06:30] LABS: CREATININE 1.1 mg/dL (0.5-1.5); PHOSPHORUS 2.8 mg/dL (2.5-4.9); POTASSIUM 3.6 mmol/L (3.5-5.1)
[2020-03-10] MEDS: INSULIN LISPRO 100 UNIT/ML 3ML SQ SCH ×6 (06:55→21:00)
[2020-03-10] MEDS: INSULIN GLARGINE 100 UNITS/ML 10 ML VIAL SQ SCH ×3 (06:56→21:00)
[2020-03-10] MEDS ORDERED: INSULIN LISPRO 100 UNIT/ML 3ML SQ SCH (07:30)
[2020-03-10 07:53] VITALS: BP 151/94
[2020-03-10] MEDS ORDERED: DIATR MEGLU/DIATRIZOATE SODIUM 30 ML BOTTLE ONE (08:22)
[2020-03-10] MEDS: ENOXAPARIN SODIUM 30 MG/0.3 ML SQ SCH (10:31)
[2020-03-10] MEDS ORDERED: IOHEXOL-350 75 ML VIAL IV ONE (11:14)
[2020-03-10 11:36] VITALS: BP 156/100
[2020-03-10] MEDS: Vitamin B Complex/Vit C/Folic Acid PO SCH (11:48)
[2020-03-10] MEDS: METOPROLOL TARTRATE 25 MG TAB PO SCH ×2 (11:48→20:33)
[2020-03-10] MEDS: FAMOTIDINE 20MG TAB 20 MG TAB PO SCH (11:48)
[2020-03-10 15:37] VITALS: BP 127/84
--- NOTE | 2020-03-10 16:43 | NUR ---
NUTRITION EDUCATION YUNG provided Diabetes Nutrition Education. YUNG reviewed reference materials and handouts with Pt. RD answered all Pt questions. Pt verbalized understanding. Addendum: 03/10/20 at [address] Amended: Links added.
[2020-03-10 19:46] VITALS: BP 119/72
[2020-03-11] VITALS (19 sets, daily range): BP systolic 123–161; BP diastolic 59–92
[2020-03-11] MEDS: INSULIN LISPRO 100 UNIT/ML 3ML SQ SCH ×7 (04:56→21:15)
[2020-03-11 05:05] LABS: BASOPHILS % (AUTO) 0.4 % (0.0-5.0); EOSINOPHILS % (AUTO) 5.3 % (0.0-8.0); HEMATOCRIT 37.2 % (42-54); LYMPHOCYTES % (AUTO) 14.8 % (21.0-51.0); MEAN CORPUSCULAR HEMOGLOBIN 30.5 pg (27.0-33.0); MEAN CORPUSCULAR HGB CONC 33.1 g/dL (32.0-36.0); MEAN CORPUSCULAR VOLUME 92.3 fL (79-99); MONOCYTES % (AUTO) 9.7 % (3.0-13.0); NEUTROPHILS % (AUTO) 69.2 % (40.0-77.0); PLATELET COUNT (AUTO) 151 K/uL (130-400); RED BLOOD CELL COUNT(AUTO) 4.03 MIL/uL (4.50-6.20); RED CELL DISTRIBUTION WIDTH 12.6 % (11.0-15.5); WHITE BLOOD COUNT (AUTO) 10.1 K/uL (4.8-10.8)
[2020-03-11 05:17] LABS: CREATININE 1.1 mg/dL (0.5-1.5); PHOSPHORUS 2.6 mg/dL (2.5-4.9); POTASSIUM 3.6 mmol/L (3.5-5.1)
[2020-03-11] MEDS: ENOXAPARIN SODIUM 30 MG/0.3 ML SQ SCH (09:00)
[2020-03-11] MEDS: Vitamin B Complex/Vit C/Folic Acid PO SCH (09:00)
[2020-03-11] MEDS: FAMOTIDINE 20MG TAB 20 MG TAB PO SCH (09:00)
[2020-03-11] MEDS: METOPROLOL TARTRATE 25 MG TAB PO SCH ×2 (09:44→19:48)
[2020-03-11] MEDS ORDERED: PROPOFOL 10 MG/ML 20ML VIAL IV ONE ×2 (11:59)
[2020-03-11] MEDS ORDERED: EPHEDRINE SULFATE 50 MG/ML AMPULE ONE (12:13)
[2020-03-11] MEDS: INSULIN GLARGINE 100 UNITS/ML 10 ML VIAL SQ SCH (21:16)
[2020-03-12] VITALS (7 sets, daily range): BP systolic 114–148; BP diastolic 66–86
[2020-03-12 04:02] LABS: CREATININE 0.9 mg/dL (0.5-1.5); HEMATOCRIT 35.8 % (42-54); MEAN CORPUSCULAR HEMOGLOBIN 30.9 pg (27.0-33.0); MEAN CORPUSCULAR HGB CONC 33.8 g/dL (32.0-36.0); MEAN CORPUSCULAR VOLUME 91.6 fL (79-99); PLATELET COUNT (AUTO) 183 K/uL (130-400); POTASSIUM 3.1 mmol/L (3.5-5.1); RED BLOOD CELL COUNT(AUTO) 3.91 MIL/uL (4.50-6.20); RED CELL DISTRIBUTION WIDTH 12.4 % (11.0-15.5); WHITE BLOOD COUNT (AUTO) 8.8 K/uL (4.8-10.8)
[2020-03-12 05:33] LABS: BAND NEUTROPHILS % (MANUAL) 5 % (0-2); EOSINOPHILS % (MANUAL) 3 % (1-6); LYMPHOCYTES % (MANUAL) 15 % (22-44); MONOCYTES % (MANUAL) 8 % (2-9); REACTIVE LYMPHOCYTES 1 % (0-0); SEGMENTED NEUTROPHILS % 68 % (40-70)
[2020-03-12 05:34] LABS: MAN.DIFF COMMENT-IMPRESSION MANUAL DIFFERENTIAL; PLATELET MORPHOLOGY COMMENT ADEQUATE
[2020-03-12] MEDS: INSULIN LISPRO 100 UNIT/ML 3ML SQ SCH ×7 (06:52→21:00)
[2020-03-12] MEDS ORDERED: POTASSIUM CHLORIDE 20 MEQ ERTAB PO SCH (08:15)
[2020-03-12] MEDS: METOPROLOL TARTRATE 25 MG TAB PO SCH ×2 (08:39→20:52)
[2020-03-12] MEDS: Vitamin B Complex/Vit C/Folic Acid PO SCH (08:39)
[2020-03-12] MEDS: FAMOTIDINE 20MG TAB 20 MG TAB PO SCH (08:40)
[2020-03-12] MEDS: ENOXAPARIN SODIUM 30 MG/0.3 ML SQ SCH (08:41)
[2020-03-12] MEDS: INSULIN GLARGINE 100 UNITS/ML 10 ML VIAL SQ SCH (21:00)
[2020-03-13 03:36] VITALS: BP 123/69
[2020-03-13 05:05] LABS: MAGNESIUM 1.8 mg/dL (1.80-2.40); POTASSIUM 3.4 mmol/L (3.5-5.1)
[2020-03-13] MEDS: INSULIN LISPRO 100 UNIT/ML 3ML SQ SCH ×7 (06:31→21:00)
[2020-03-13 08:00] VITALS: BP 132/75
[2020-03-13] MEDS: ENOXAPARIN SODIUM 30 MG/0.3 ML SQ SCH (09:27)
[2020-03-13] MEDS: Vitamin B Complex/Vit C/Folic Acid PO SCH (09:28)
[2020-03-13] MEDS: METOPROLOL TARTRATE 25 MG TAB PO SCH ×2 (09:28→21:17)
[2020-03-13] MEDS: FAMOTIDINE 20MG TAB 20 MG TAB PO SCH (09:28)
[2020-03-13 11:00] VITALS: BP 146/67
[2020-03-13 16:00] VITALS: BP 146/84
[2020-03-13 19:00] VITALS: BP 134/68
[2020-03-13] MEDS ORDERED: POTASSIUM CHLORIDE 20 MEQ ERTAB PO PRN (20:45)
[2020-03-13] MEDS ORDERED: LIDOCAINE HCL-MPF 1% 2ML VIAL IV PRN (20:45)
[2020-03-13] MEDS ORDERED: POTASSIUM CHLORIDE 20MEQ/100ML 100 ML IV PRN (20:45)
[2020-03-13] MEDS: POTASSIUM CHLORIDE 10% ELIXIR 20 MEQ/15 ML UDCUP PO PRN (21:19)
[2020-03-13] MEDS: INSULIN GLARGINE 100 UNITS/ML 10 ML VIAL SQ SCH (21:24)
--- NOTE | 2020-03-13 22:47 | NUR ---
SUZIE MCCABE PAGED FOR ORDERS ORDERS GIVEN FOR A SLEEP AID
[2020-03-13 23:00] VITALS: BP 142/95
[2020-03-14] MEDS: HYDROXYZINE HCL 25 MG TABLET PO PRN ×2 (00:06→22:37)
[2020-03-14 03:00] VITALS: BP 110/66
[2020-03-14] MEDS: INSULIN LISPRO 100 UNIT/ML 3ML SQ SCH ×7 (05:59→21:00)
[2020-03-14 06:30] LABS: BASOPHILS % (AUTO) 0.6 % (0.0-5.0); EOSINOPHILS % (AUTO) 5.5 % (0.0-8.0); HEMATOCRIT 35.7 % (42-54); LYMPHOCYTES % (AUTO) 19.4 % (21.0-51.0); MEAN CORPUSCULAR HEMOGLOBIN 30.8 pg (27.0-33.0); MEAN CORPUSCULAR HGB CONC 33.6 g/dL (32.0-36.0); MEAN CORPUSCULAR VOLUME 91.5 fL (79-99); MONOCYTES % (AUTO) 15.9 % (3.0-13.0); PLATELET COUNT (AUTO) 214 K/uL (130-400); RED CELL DISTRIBUTION WIDTH 12.6 % (11.0-15.5); WHITE BLOOD COUNT (AUTO) 6.6 K/uL (4.8-10.8)
[2020-03-14 06:43] LABS: ALBUMIN 2.7 g/dL (3.5-5.0); BILIRUBIN,TOTAL 0.6 mg/dL (0.2-1.0); POTASSIUM 3.1 mmol/L (3.5-5.1); TOTAL PROTEIN, SERUM 6.6 g/dL (6.0-8.3)
[2020-03-14] MEDS: POTASSIUM CHLORIDE 10% ELIXIR 20 MEQ/15 ML UDCUP PO PRN ×2 (07:32→20:15)
[2020-03-14 08:00] VITALS: BP 140/81
[2020-03-14] MEDS ORDERED: METFORMIN HCL 500 MG TABLET PO SCH ×2 (09:15→09:30)
[2020-03-14] MEDS: METOPROLOL TARTRATE 25 MG TAB PO SCH ×2 (09:40→20:14)
[2020-03-14] MEDS: FAMOTIDINE 20MG TAB 20 MG TAB PO SCH (09:40)
[2020-03-14] MEDS: ENOXAPARIN SODIUM 30 MG/0.3 ML SQ SCH (09:40)
[2020-03-14] MEDS: Vitamin B Complex/Vit C/Folic Acid PO SCH (09:40)
--- NOTE | 2020-03-14 11:00 | NUR ---
CM NOTE RECEIVED CALL from sister adina [phone]. proceeded to pts room, and per pt ok to speak to sister regarding dc planning, adina states that pt is too weak to go home lives on his own, has no one to stay with him, and is new diabetic will require insulin. .updated Juancarlos Lucas SENIOR PORTFOLIO ANALYST, and new orders received. per pt agreeable to snf level of care for dm education and strengthening. choice letter obtained, pt and sister adina requesting [facility] snf and requesting pt use the medicare for snf, provided medicare #[id number] referral faxed and call made to blanca montano, states will f/u with referral.
[2020-03-14 11:37] VITALS: BP 149/86
--- NOTE | 2020-03-14 14:19 | NUR ---
EXTRA NOTE, PT MAGALY 03/14/20: The evaluation was limited, since patient did not want to do certain aspects (eg: gait testing, etc). Patient repeatedly was asking about being educated on self-administration of insulin. I did endorse this to patient's nurse. I also did educate patient that a possible discharge plan, to a care home facility, is being looked into. Addendum: 03/14/20 at 1424 by RUI POLANCO PT Amended: Links added.
[2020-03-14 16:00] VITALS: BP 138/80
--- NOTE | 2020-03-14 16:55 | NUR ---
cm note received call from blanca with [facility], and states pt accepted to facility but until tomorrow. updated primary nurse.
[2020-03-14 19:00] VITALS: BP_SYST 115; BP_SYST 121; BP_DIAS 58; BP_DIAS 72
[2020-03-14] MEDS: INSULIN GLARGINE 100 UNITS/ML 10 ML VIAL SQ SCH (20:26)
[2020-03-14 23:00] VITALS: BP 121/58
[2020-03-15 03:00] VITALS: BP 116/64
[2020-03-15 04:35] LABS: BASOPHILS % (AUTO) 0.4 % (0.0-5.0); EOSINOPHILS % (AUTO) 5.2 % (0.0-8.0); LYMPHOCYTES % (AUTO) 20.4 % (21.0-51.0); MEAN CORPUSCULAR HEMOGLOBIN 30.1 pg (27.0-33.0); MEAN CORPUSCULAR HGB CONC 33.3 g/dL (32.0-36.0); MEAN CORPUSCULAR VOLUME 90.2 fL (79-99); MONOCYTES % (AUTO) 15.4 % (3.0-13.0); NEUTROPHILS % (AUTO) 58.2 % (40.0-77.0); PLATELET COUNT (AUTO) 235 K/uL (130-400); RED BLOOD CELL COUNT(AUTO) 3.99 MIL/uL (4.50-6.20); RED CELL DISTRIBUTION WIDTH 12.4 % (11.0-15.5); WHITE BLOOD COUNT (AUTO) 6.7 K/uL (4.8-10.8)
[2020-03-15 04:46] LABS: ALBUMIN 2.7 g/dL (3.5-5.0); BILIRUBIN,TOTAL 0.4 mg/dL (0.2-1.0); CREATININE 1.1 mg/dL (0.5-1.5); POTASSIUM 3.3 mmol/L (3.5-5.1); TOTAL PROTEIN, SERUM 6.6 g/dL (6.0-8.3)
[2020-03-15] MEDS: INSULIN LISPRO 100 UNIT/ML 3ML SQ SCH ×6 (06:25→16:31)
[2020-03-15] MEDS: POTASSIUM CHLORIDE 10% ELIXIR 20 MEQ/15 ML UDCUP PO PRN (06:30)
[2020-03-15 08:00] VITALS: BP 132/67
[2020-03-15] MEDS: Vitamin B Complex/Vit C/Folic Acid PO SCH (10:19)
[2020-03-15] MEDS: METOPROLOL TARTRATE 25 MG TAB PO SCH (10:19)
[2020-03-15] MEDS: FAMOTIDINE 20MG TAB 20 MG TAB PO SCH (10:19)
[2020-03-15] MEDS: ENOXAPARIN SODIUM 30 MG/0.3 ML SQ SCH (10:20)
[2020-03-15 11:17] VITALS: BP 124/69
[2020-03-15] MEDS ORDERED: METO25 PO (13:16)
--- NOTE | 2020-03-15 18:43 | NUR ---
[facility] here for patient transport to facility. Patient in no visible distress. No c/o n/v, cp, dizziness or SOB. Patient records given in hand to [facility].
== END 2020-03-15 18:40 | DRG 374 ==
LOC: EDH 11:51 → EDHIP 15:57 → 2CH 20:02 → 4DH 03-06 10:30
PROVIDERS: ADMIT Family Medicine; ATTEND Family Medicine
PROC: 0DB68ZX Excision of Stomach, Via Natural or Artificial Opening Endoscopic, Diagnostic (ICD-10-PCS; principal; 2020-03-11)
DX: C16.9 Malignant neoplasm of stomach, unspecified (principal); E11.10 Type 2 diabetes mellitus with ketoacidosis without coma; N17.9 Acute kidney failure, unspecified; E87.0 Hyperosmolality and hypernatremia; E86.1 Hypovolemia; I10 Essential (primary) hypertension; K22.711 Barrett's esophagus with high grade dysplasia; E78.5 Hyperlipidemia, unspecified; Z20.828 Contact with and (suspected) exposure to other viral communicable diseases; E11.51 Type 2 diabetes mellitus with diabetic peripheral angiopathy without gangrene; E86.0 Dehydration; E83.52 Hypercalcemia; I45.10 Unspecified right bundle-branch block; M41.9 Scoliosis, unspecified; K44.9 Diaphragmatic hernia without obstruction or gangrene; K43.9 Ventral hernia without obstruction or gangrene; E66.01 Morbid (severe) obesity due to excess calories; E87.8 Other disorders of electrolyte and fluid balance, not elsewhere classified; I25.10 Atherosclerotic heart disease of native coronary artery without angina pectoris; E87.6 Hypokalemia; D64.9 Anemia, unspecified; N18.9 Chronic kidney disease, unspecified; I12.9 Hypertensive chronic kidney disease with stage 1 through stage 4 chronic kidney disease, or unspecified chronic kidney disease; E11.22 Type 2 diabetes mellitus with diabetic chronic kidney disease; G47.00 Insomnia, unspecified; K59.00 Constipation, unspecified; R29.6 Repeated falls; Z68.31 Body mass index [BMI] 31.0-31.9, adult; Z91.19 Patient's noncompliance with other medical treatment and regimen; Z86.14 Personal history of Methicillin resistant Staphylococcus aureus infection; Z86.718 Personal history of other venous thrombosis and embolism; Z82.49 Family history of ischemic heart disease and other diseases of the circulatory system
CPT/HCPCS: 36415; 36600; 43239; 71045; 74170; 76770; 80048; 80053; 80061; 81001; 82010; 82306; 82330; 82550; 82570; 82803; 82948; 83036; 83605; 83735; 83874; 83935; 83970; 84100; 84145; 84156; 84300; 84443; 84484; 84550; 85025; 85610; 85730; 87040; 87088; 87804; 88305; 88342; 93005; A4606; G0378; J1170; J1200; J1644; J1650; J1815; J2270; J2543; J2704; J3411; J3490; J7030; J7070; J7120; Q0163; Q9963; Q9967

== ENCOUNTER → 2020-04-17 | Outpatient (CLI) | payer OTHER | END | disposition home or self-care (01) ==

== ENCOUNTER → 2020-05-08 | Outpatient (CLI) | payer OTHER ==
[~2020-05-08] VITALS: Ht 180.3 cm; Wt 121.6 kg
[~2020-05-08] MED LIST changes: -AMLO-258 PO; +AMLO10TA7 PO; -LOSA100T58 PO; +METO25 PO; +PANT40TA25 PO; -PANT40TA55 PO; +REGADENOSON 0.4 MG/5 ML PF SYG IVP SCH
== END | disposition home or self-care (01) ==
LOC: SHCH 08:13
PROVIDERS: ATTEND Internal Medicine Cardiovascular Disease
DX: R06.00 Dyspnea, unspecified (principal); I25.10 Atherosclerotic heart disease of native coronary artery without angina pectoris
CPT/HCPCS: 78452; 93017; 96374; A9500 ×2; J2785

== ENCOUNTER → 2020-05-13 | Outpatient (CLI) | payer OTHER ==
[~2020-05-13] MED LIST changes: -REGADENOSON 0.4 MG/5 ML PF SYG IVP SCH
== END | disposition home or self-care (01) ==
LOC: RAH 13:38
PROVIDERS: ATTEND Internal Medicine Cardiovascular Disease
DX: R79.1 Abnormal coagulation profile (principal)
CPT/HCPCS: 93970

== ENCOUNTER → 2023-02-13 | Outpatient (CLI) | payer OTHER ==
[~2023-02-13] MED LIST changes: +AMLO-258 PO; -AMLO10TA7 PO; -PANT40TA25 PO; +PANT40TA55 PO
== END | disposition home or self-care (01) ==
LOC: RAH 08:10
PROVIDERS: ATTEND Thoracic Surgery (Cardiothoracic Vascular Surgery)
DX: I70.0 Atherosclerosis of aorta (principal); I71.03 Dissection of thoracoabdominal aorta
CPT/HCPCS: 76700

== ENCOUNTER → 2023-04-05 | Outpatient (CLI) | payer OTHER ==
[~2023-04-05] MED LIST changes: +IOHEXOL 350 MG/ML 100ML INFUS..BTL IV ONE
== END | disposition home or self-care (01) ==
LOC: RAH 07:41
PROVIDERS: ATTEND Internal Medicine Gastroenterology
DX: C16.9 Malignant neoplasm of stomach, unspecified (principal); C15.9 Malignant neoplasm of esophagus, unspecified; I71.012 Dissection of descending thoracic aorta; K44.9 Diaphragmatic hernia without obstruction or gangrene
CPT/HCPCS: 71270; 74178; Q9967

== ENCOUNTER → 2023-09-04 | Outpatient (CLI) | payer OTHER ==
[~2023-09-04] VITALS: Ht 180.3 cm; Wt 110.0 kg
[~2023-09-04] MED LIST changes: +AEC81 PO; +ATOR40TA69 PO; +CYAN-35 PO; +INSLAN SQ; -IOHEXOL 350 MG/ML 100ML INFUS..BTL IV ONE; +LOSA100T59 PO; +OMEP40CA21 PO; +RIVA2.5T PO
[2023-09-04 12:30] VITALS: BP 124/86; PULSE 68; RESP 18
[2023-09-04 12:42] LABS: BASOPHILS # (AUTO) 0.04 K/uL (0.00-0.20); BASOPHILS % (AUTO) 0.6 % (0.0-5.0); EOSINOPHILS # (AUTO) 0.17 K/uL (0.00-0.70); EOSINOPHILS % (AUTO) 2.4 % (0.0-8.0); HEMATOCRIT 40.9 % (42-54); IMMATURE GRANULOCYTE ABSOLUTE 0.04 K/uL (0-1); LYMPHOCYTES # (AUTO) 1.4 K/uL (1.0-4.8); LYMPHOCYTES % (AUTO) 19.8 % (21.0-51.0); MEAN CORPUSCULAR HEMOGLOBIN 31.2 pg (27.0-33.0); MEAN CORPUSCULAR HGB CONC 32.3 g/dL (32.0-36.0); MEAN CORPUSCULAR VOLUME 96.7 fL (79-99); MONOCYTES # (AUTO) 0.6 K/uL (0.1-1.0); MONOCYTES % (AUTO) 7.8 % (3.0-13.0); NEUTROPHILS % (AUTO) 68.8 % (40.0-77.0); PLATELET COUNT (AUTO) 180 K/uL (130-400); RED BLOOD CELL COUNT(AUTO) 4.23 MIL/uL (4.50-6.20); RED CELL DISTRIBUTION WIDTH 14.6 % (11.0-15.5); WHITE BLOOD COUNT (AUTO) 7.2 K/uL (4.8-10.8)
[2023-09-04 12:52] LABS: CREATININE 1.1 mg/dL (0.5-1.5); POTASSIUM 4.2 mmol/L (3.5-5.1)
[2023-09-04 12:55] LABS: INR 1.06 (0.85-1.15); PROTHROMBIN TIME 12.3 SEC (9.6-11.6)
[2023-09-04 12:57] LABS: PARTIAL THROMBOPLASTIN TIME 34.5 SEC (26.3-35.5)
== END | disposition home or self-care (01) ==
LOC: DAH 10:47 → EDSTATUS 13:00 → UNDOADMIN 09-05 09:18 → DAHIP 09-05 09:18
PROVIDERS: ATTEND Surgery
DX: Z01.812 Encounter for preprocedural laboratory examination (principal); C16.8 Malignant neoplasm of overlapping sites of stomach; Z79.01 Long term (current) use of anticoagulants
CPT/HCPCS: 36415; 80048; 85025; 85730; 85610; A6260